=== PATIENT | female | born 1955 | race Caucasian/White ===

== ENCOUNTER → 2020-03-07 | Outpatient (CLI) | payer MEDICARE ==
--- NOTE | 2020-03-07 10:54 | MM ---
Reason for exam: clinical finding. History: Patient is postmenopausal and has history of breast cancer at age 47. Family history of breast cancer in sister at age 40 and breast cancer in cousin at age 40. Implant in the right breast, 2001. Breast lift of the left breast. Reduction of the left breast. Mastectomy of the right breast. Took antineoplastic beginning at age 47. Physical Findings: Nurse did not find any significant physical abnormalities on exam. MG 3D Diag Mammo W/Cad LT CC and MLO view(s) were taken of the left breast. The breast tissue is heterogeneously dense. This may lower the sensitivity of mammography. Stable benign calcifications left breast. There is no discrete abnormality including area of concern. These results were verbally communicated with the patient and result sheet given to the patient on 03/07/20. ASSESSMENT: Incomplete: need additional imaging evaluation, BI-RAD 0 RECOMMENDATION: Ultrasound of the left breast. Manage patient on a clinical basis.
--- NOTE | 2020-03-07 10:55 | USB ---
Reason for exam: additional evaluation requested from abnormal screening. History: Patient is postmenopausal and has history of breast cancer at age 47. Family history of breast cancer in sister at age 40 and breast cancer in cousin at age 40. Implant in the right breast, 2001. Breast lift of the left breast. Reduction of the left breast. Mastectomy of the right breast. Took antineoplastic beginning at age 47. US Breast LT Left complete breast ultrasound includes all four quadrants, the retroareolar region and axilla. Finding demonstrates no cystic or solid lesion seen. These results were verbally communicated with the patient and result sheet given to the patient on 03/07/20. ASSESSMENT: Negative, BI-RAD 1 RECOMMENDATION: Routine screening mammogram of the left breast in 1 year. Manage patient on a clinical basis.
--- NOTE | 2020-03-08 13:40 | BD ---
EXAMINATION TYPE: Axial Bone Density DATE OF EXAM: 03/07/2020 COMPARISON: NONE CLINICAL HISTORY: Height: 64.5 Weight: 154.4 FRAX RISK QUESTIONS: Alcohol (3 or more units per day): no Family History (Parent hip fracture): no Glucocorticoids (More than 3mos): no (Ex: prednisone, prednisolone, methylprednisolone, dexamethasone, and hydrocortisone). History of Fracture in Adulthood: no Secondary Osteoporosis: 1. Type 1 Diabetes: no 2. Hyperthyroidism: no 3. Menopause before 45: no 4. Malnutrition: no 5. Chronic liver disease: no Rheumatoid Arthritis: no Current Tobacco Use: yes RISK FACTORS HISTORY OF: Family History of Osteoporosis: no Active: yes Diet low in dairy products/other sources of calcium: yes Postmenopausal woman: age46 MEDICATIONS: none Additional History: EXAM MEASUREMENTS: Bone mineral densitometry was performed using the [employer] System. Bone mineral density as measured about the Lumbar spine is: ----- L1-L4(G/cm2): 1.092 T Score Values are as follows: ----- L2: -1.1 ----- L3: -0.3 ----- L4: -0.5 ----- L1-L4: 0.7 Bone mineral density : baseline Bone mineral density about the R hip (g/cm2): 0.882 Bone mineral density about the L hip (g/cm2): 0.966 T Score values are as follows: -----R Neck: -1.1 -----L Neck: -0.5 -----R Total: -0.9 -----L Total: -0.1 Bone mineral density : baseline IMPRESSION: Osteopenia (T Score between -2.5 and -1). Right femoral neck There is slightly increased risk of fracture and the patient may be considered for treatment. Re-Screen 2-5 years. NOTE: T-SCORE=SD OF THE YOUNG ADULT MEAN.
== END | disposition home or self-care (01) ==
LOC: RADMAMWWP 08:56
PROVIDERS: ATTEND Family Medicine
DX: Z08 Encounter for follow-up examination after completed treatment for malignant neoplasm (principal); M85.851 Other specified disorders of bone density and structure, right thigh; Z85.3 Personal history of malignant neoplasm of breast
CPT/HCPCS: 77080; 77065; 76641; G0279; 77061

== ENCOUNTER → 2021-05-22 | Outpatient (CLI) | payer MEDICARE ==
--- NOTE | 2021-05-23 12:27 | MM ---
Reason for exam: screening (asymptomatic). Last mammogram was performed 1 year and 2 months ago. History: Patient is postmenopausal and has history of breast cancer at age 47. Family history of breast cancer in sister at age 40 and breast cancer in cousin at age 40. Implant in the right breast, 2001. Breast lift of the left breast. Reduction of the left breast. Mastectomy of the right breast. Took antineoplastic beginning at age 47. Physical Findings: A clinical breast exam by your physician is recommended on an annual basis and results should be correlated with mammographic findings. MG 3D Scr Portia Unilateral W/Cad CC and MLO view(s) were taken of the left breast. Prior study comparison: March 07, 2020, left breast MG 3d diag mammo w/cad LT. There are scattered fibroglandular densities. There are benign appearing round, grouped and scattered calcifications in the left breast. There is no discrete abnormality. ASSESSMENT: Benign, BI-RAD 2 RECOMMENDATION: Routine screening mammogram of the left breast in 1 year.
== END | disposition home or self-care (01) ==
LOC: RADMAMWWP 09:25
PROVIDERS: ATTEND Family Medicine
DX: Z12.31 Encounter for screening mammogram for malignant neoplasm of breast (principal); Z78.0 Asymptomatic menopausal state; Z85.3 Personal history of malignant neoplasm of breast
CPT/HCPCS: 77067

== ENCOUNTER → 2022-06-02 | Outpatient (CLI) | payer MEDICARE ==
--- NOTE | 2022-06-02 19:29 | BD ---
EXAMINATION TYPE: Axial Bone Density DATE OF EXAM: 06/02/2022 COMPARISON: NONE CLINICAL HISTORY: 67 years year old Female. ICD-10 CODE: N95.1 POST MENOP M89.9 Height: 63.25 Weight: 141.9 FRAX RISK QUESTIONS: Alcohol (3 or more units per day): NO Family History (Parent hip fracture): NO Glucocorticoids (More than 3mos): NO History of Fracture in Adulthood: NO Secondary Osteoporosis: 1. Type 1 Diabetes: NO 2. Hyperthyroidism: NO 3. Menopause before 45: YES 4. Malnutrition: NO 5. Chronic liver disease: NO Rheumatoid Arthritis: NO Current Tobacco Use: YES RISK FACTORS HISTORY OF: Hip Fracture (Right/Left): NO Spine Fracture: NO History of Wrist Fracture: NO Surgery to Spine/Hip(right/left)/Wrist (right/left): NO Family History of Osteoporosis: NO Active: YES Diet low in dairy products/other sources of calcium: YES Postmenopausal woman: YES Take estrogen and/or progesterone medications: NO Lost more than 2 inches in height since high school: NO Frequent falls: NO Poor Health: NO Hyperparathyroidism: NO Adrenal Insufficiency: NO MEDICATIONS: Prednisone or other steroids: NO Thyroid Medications: NO Osteoporosis Medications: NO Additional Medications: MULTI VIT, VIT C, FISH OIL, VIT D BREAST CA. AGE 43 WITH CHEMO Additional History: EXAM MEASUREMENTS: Bone mineral densitometry was performed using the [email or web address] System. Bone mineral density as measured about the Lumbar spine is: ----- L1-L4(G/cm2): 1.085 T Score Values are as follows: ----- L1: -2.0 ----- L2: -1.1 ----- L3: -0.5 ----- L4: 0.1 ----- L1-L4: -0.8 BASELINE STUDY Bone mineral density about the R hip (g/cm2): 0.874 Bone mineral density about the L hip (g/cm2): 0.954 T Score values are as follows: -----R Neck: -1.2 -----L Neck: -0.6 -----R Total: -1.2 -----L Total: -0.2B BASELINE STUDY FRAX%s: The graph provided illustrates a 9.2% chance for a major osteoporotic fx and a 1.6% chance fo r the hips probability for fx in 10 years time. IMPRESSION: Osteopenia (T Score between -2.5 and -1). There is slightly increased risk of fracture and the patient may be considered for treatment. Re-Screen 2-5 years. NOTE: T-SCORE=SD OF THE YOUNG ADULT MEAN.
--- NOTE | 2022-06-03 07:57 | MM ---
Reason for Exam: Screening (asymptomatic). Last screening mammogram was performed 12 month(s) ago. Patient History: Menarche at age 15. First Full-Term at age 27. Postmenopausal. Patient has history of breast feeding. Breast cancer, right, age 47. Previous chemotherapy at age 47. 2001, Reduction on the Left side. 2001, Mastectomy on the Right side. 2001, Implant on the right side. Maternal cousin had breast cancer, age 40. Sister had breast cancer, age 40. Prior Study Comparison: 03/07/2020 Left Diagnostic Mammogram, [facility]. 05/22/2021 Left Screening Mammogram, [facility]. Tissue Density: Left: There are scattered fibroglandular densities. Overall Assessment: Benign, BI-RAD 2 Management: Screening Mammogram of the left breast in 1 year. Electronically signed and approved by: Rico Montes D.O.
== END | disposition home or self-care (01) ==
LOC: RADBDWWP 14:33
PROVIDERS: ATTEND Family Medicine
DX: M85.89 Other specified disorders of bone density and structure, multiple sites (principal); Z85.3 Personal history of malignant neoplasm of breast
CPT/HCPCS: 77067; 77080

== ENCOUNTER 2022-06-17 07:16 | Day surgery (SDC) | payer MEDICARE ==
[2022-06-16 08:34] VITALS: BMI 23.6
[~2022-06-17 07:16] MED LIST: LACTATED RINGERS 1,000 ML IV SCH; LIDOCAINE 1% (10MG/ML) FOR IV START INTRADERMA PRN
[2022-06-17 07:48] VITALS: TEMP 97.1
[2022-06-17 08:07] LABS: Glucose,Whole Blood 99 mg/dL (70-110)
[2022-06-17] MEDS ORDERED: LIDOCAINE 2% INJ 20 MG/ML (2 ML VIAL) ONE (08:46)
[2022-06-17] MEDS ORDERED: PROPOFOL 10 MG/ML 20 ML VIAL IV ONE (08:46)
--- NOTE | 2022-06-17 09:02 | P.PCN ---
Date of Procedure: 06/17/22 Procedure(s) Performed: BRIEF HISTORY: Patient is a 67-year-old pleasant female scheduled for an elective colonoscopy as a part of screening for colon cancer. Her last colonoscopy was 10 years ago. PROCEDURE PERFORMED: Colonoscopy. PREOPERATIVE DIAGNOSIS: Screening for colon cancer. IV sedation per Anesthesia. PROCEDURE: After informed consent was obtained, the patient, was brought into the endoscopy unit. IV sedation was administered by Anesthesia under continuous monitoring. Digital rectal examination was normal. Initially the Olympus CF-160 flexible video colonoscope was then inserted in the rectum, gradually advanced into the cecum without any difficulty. Careful examination was performed as the scope was gradually being withdrawn. Ileocecal valve and the appendiceal orifice were visualized and appeared normal. Prep was excellent. Mucosa of the cecum, ascending colon, transverse colon, descending colon, sigmoid colon, and rectum appeared normal. Retroflexion was performed in the rectum and no lesions were seen. The patient tolerated the procedure well. IMPRESSION: Normal-appearing colon from rectum to cecum with no evidence of colorectal neoplasia. RECOMMENDATIONS: Findings of this examination were discussed with the patient as well as a family.. She was advised to have a repeat screening colonoscopy in 10 years.
[2022-06-17 09:09] VITALS: RESP 16
[2022-06-17 09:21] VITALS: BP 108/54; PULSE 60
== END 2022-06-17 09:59 | disposition home or self-care (01) ==
LOC: ORWHC2ENDO 07:16
PROVIDERS: ATTEND Internal Medicine Gastroenterology
DX: Z12.11 Encounter for screening for malignant neoplasm of colon (principal); Z79.899 Other long term (current) drug therapy; Z85.3 Personal history of malignant neoplasm of breast; Z90.11 Acquired absence of right breast and nipple
CPT/HCPCS: J2704; J2001; G0121

== ENCOUNTER → 2022-09-17 | Outpatient (CLI) | payer MEDICARE ==
--- NOTE | 2022-09-17 12:49 | CTL ---
EXAMINATION TYPE: CT Low Dose Lung DATE OF EXAM ORDERED: 09/17/2022 HISTORY: 67-year-old female Z87.891 NICOTINE DEPENDENCE. 50 pack-year history of smoking. Lung cancer screening CT DLP: 80.[address] CTDI: 2.1 mGy Automated exposure control for dose reduction was used. SCREENING VISIT: Baseline COMPARISON: None TECHNIQUE: Low dose computed tomography scan was performed through the chest with coronal and sagitta l reconstructions. CT DIAGNOSTIC QUALITY: Satisfactory FINDINGS: Status post right mastectomy with a retropectoral right breast implant/reconstruction. Heart normal size without pericardial effusion. Aorta normal caliber with conventional arch also branching anatomy. Mildly ectatic lower descending t horacic aorta at 2.9 cm. No thoracic lymphadenopathy by CT size criteria. Mild centrilobular emphysema. Minimal biapical pleural parenchymal scarring. No consolidation or pleu ral effusion. 4 mm lateral right upper lobe pulmonary nodule, axial image 93. Tiny 3 mm calcified granuloma posterior left upper lobe, axial image 50. Visualized upper abdomen shows a 1.9 cm low-density nodule of the left adrenal gland with attenuation of 6 Hounsfield units compatible with lipid rich adrenal adenoma. Bones: No osseous destructive process seen. IMPRESSION: 1. LungRADS 2, benign; a couple pulmonary nodules measuring up to 4 mm. The smaller nodule represents a benign calcified granuloma. 2. COPD with mild emphysema. Recommend smoking cessation. 3. Incidental 1.9 cm lipid rich left adrenal adenoma. CT LUNG RAD AND CT CHEST RECOMMENDATION: Lung-Rad 2 Benign Appearance or Behavior: Continue annual sc reening with LDCT in 12 months. S Modifier (other clinically significant findings): S, left adrenal adenoma as mentioned above.
== END | disposition home or self-care (01) ==
LOC: RADCTMAIN 10:49
PROVIDERS: ATTEND Family Medicine
DX: Z12.2 Encounter for screening for malignant neoplasm of respiratory organs (principal); J43.9 Emphysema, unspecified; D35.02 Benign neoplasm of left adrenal gland; R91.8 Other nonspecific abnormal finding of lung field; J84.10 Pulmonary fibrosis, unspecified; Z87.891 Personal history of nicotine dependence
CPT/HCPCS: 71271

== ENCOUNTER → 2022-09-24 | Outpatient (CLI) | payer MEDICARE ==
--- NOTE | 2022-09-24 10:42 | XR ---
EXAMINATION TYPE: XR cervical spine comp DATE OF EXAM: 09/24/2022 COMPARISON: NONE HISTORY: Pain TECHNIQUE: Four views are submitted. FINDINGS: The odontoid is intact. There are no compression deformities. The prevertebral soft tissue structur es are within normal limits. Moderate to severe degenerative disc disease with hypertrophic changes C5-6 and C6-C7. Bilateral foraminal encroachment levels. Tiny calcification in soft tissues left neck could be related to the carotid artery. IMPRESSION: 1. Moderate to severe degenerative disc disease C5-6 and C6-C7 with bilateral foraminal quadrant. Cor relate with MRI as clinically warranted..
--- NOTE | 2022-09-24 10:43 | XR ---
EXAMINATION TYPE: XR shoulder complete LT DATE OF EXAM: 09/24/2022 COMPARISON: NONE HISTORY: Pain TECHNIQUE: Three views are submitted. FINDINGS: The osseous structures are intact. There is no acute fracture or dislocation. Severe narrowing of th e AC joint. IMPRESSION: 1. Severe AC joint arthropathy
== END | disposition home or self-care (01) ==
LOC: RADXRMAIN 09:55
PROVIDERS: ATTEND Family Medicine
DX: M50.323 Other cervical disc degeneration at C6-C7 level (principal); M19.012 Primary osteoarthritis, left shoulder; M75.42 Impingement syndrome of left shoulder
CPT/HCPCS: 72050

== ENCOUNTER → 2022-10-10 | Outpatient (CLI) | payer MEDICARE ==
[2022-10-10 14:30] LABS: Basophils # (A) 0.07 X 10*3/uL (0.00-0.10); Basophils % (A) 0.7 %; Lymphocytes # (A) 3.21 X 10*3/uL (0.90-5.00); Lymphocytes % (A) 31.3 %; MCH 23.5 pg (27.0-32.0); MCV 80.9 fL (80.0-97.0); Mean Platelet Volume 8.8 fL (9.5-12.2); Monocytes # (A) 0.99 X 10*3/uL (0.20-1.00); Monocytes % (A) 9.6 %; NRBC Per 100 WBC 0 /100 WBCS (0.0-0.0); Neutrophils % (A) 56.4 %; Platelet Count 436 X 10*3/uL (140-440); RBC 3.83 X 10*6/uL (4.10-5.20); RDW 16.4 % (11.5-14.5); WBC 10.27 X 10*3/uL (4.50-10.00)
[2022-10-10 15:13] LABS: Erythrocyte Sedimentation Rate 82 mm/Hr (0-30)
[2022-10-10 15:57] LABS: Protein, Total 7.7 g/dL (6.2-8.2)
[2022-10-10 16:01] LABS: African American GFR (CKD) 115.3 (60.0-200.0); Albumin 3.6 g/dL (3.8-4.9); Albumin/Globulin Ratio 0.9 (1.60-3.17); BUN/Creat Ratio 25.2 Ratio (12.00-20.00); Blood Urea Nitrogen 12.6 mg/dL (9.0-27.0); C Reactive Protein 19.1 mg/dL (0.00-0.80); Calcium 9.2 mg/dL (8.7-10.3); Non-African American GFR(CKD) 99.4 (60.0-200.0); Total Bilirubin 0.3 mg/dL (0.30-1.20); Total Protein 7.6 g/dL (6.2-8.2)
== END | disposition home or self-care (01) ==
LOC: LABWHC1 09:20
PROVIDERS: ATTEND Family Medicine
DX: M62.81 Muscle weakness (generalized) (principal); T56 Toxic effect of metals
CPT/HCPCS: 36415; 80053; 82525; 83883; 84165; 85025; 85652; 86140; 86334

== ENCOUNTER → 2022-10-15 | Outpatient (CLI) | payer MEDICARE ==
--- NOTE | 2022-10-15 11:50 | XR ---
EXAMINATION TYPE: XR lumbar spine 2 or 3V DATE OF EXAM: 10/15/2022 10:09 AM INDICATION: Patient age:Female; 67 years old; Reason for study: M62.81 Muscle weakness; COMPARISON: None TECHNIQUE: Frontal, lateral and coned in L5-S1 lateral views of the spine. FINDINGS: No evidence of any acute osseous pathology. No evidence of loss of vertebral body height i s seen. There is mild extra scoliosis apex L3 alignment of the lumbar vertebral bodies. Mild scattere d disc space narrowing. Multilevel marginal osteophyte formation throughout the visualized spine. The re is facet joint arthropathy throughout the spine. Scattered at least mild neural foraminal stenosis . IMPRESSION: 1. No acute fracture. 2. Mild multilevel disc degeneration.
== END | disposition home or self-care (01) ==
LOC: RADXRMAIN 09:50
PROVIDERS: ATTEND Family Medicine
DX: M51.36 Other intervertebral disc degeneration, lumbar region (principal); M62.81 Muscle weakness (generalized)
CPT/HCPCS: 72100

== ENCOUNTER → 2022-12-27 | Outpatient (CLI) | payer MEDICARE ==
--- NOTE | 2022-12-27 13:30 | MR ---
EXAMINATION TYPE: MR cervical spine wo con DATE OF EXAM: 12/27/2022 COMPARISON: Cervical spine radiograph 09/24/2022 HISTORY: Neck pain, muscle weakness TECHNIQUE: Multiplanar, multisequence images of the cervical spine were acquired without contrast. FINDINGS: Cervical segments are intact. There is normal alignment. Cervical spinal cord is of normal signal. Craniovertebral junction relationships are within normal limits. Multilevel disc desiccation. C2-C3: No disc bulge/herniation or protrusion. No Canal stenosis. Foramina are patent bilaterally. C3-C4: No disc bulge/herniation or protrusion. No Canal stenosis. Foramina are patent bilaterally. C4-C5: No disc bulge/herniation or protrusion. No Canal stenosis. Foramina are patent bilaterally. C5-C6: Broad-based disc bulge with mild effacement of the anterior thecal sac. Uncovertebral joint hy pertrophy. Moderate bilateral neural foraminal stenosis. C6-C7: Broad-based disc bulge with mild effacement of the anterior thecal sac. Uncovertebral joint hy pertrophy. Moderate right and mild left neural foraminal stenosis. C7-T1: No disc bulge/herniation or protrusion. No Canal stenosis. Foramina are patent bilaterally. IMPRESSION: 1. No disc herniation. 2. Moderate degenerative disc disease and uncovertebral joint hypertrophy at C5-C6 and C6-C7 with mil d central canal narrowing and varying degrees of neural foraminal stenosis as described above.
== END | disposition home or self-care (01) ==
LOC: RADMRIMAIN 11:58
PROVIDERS: ATTEND Psychiatry & Neurology Neurology
DX: M50.122 Cervical disc disorder at C5-C6 level with radiculopathy (principal); M99.71 Connective tissue and disc stenosis of intervertebral foramina of cervical region
CPT/HCPCS: 72141

== ENCOUNTER 2023-03-20 17:48 | Inpatient (IN) | payer MEDICARE ==
--- NOTE | 2023-03-20 19:07 | US ---
EXAMINATION TYPE: US venous doppler duplex LE LT DATE OF EXAM: 03/20/2023 6:52 PM COMPARISON: NONE CLINICAL INDICATION: Female, 68 years old with history of decrease pedal pulse. cyanotic; left foot p ain and edema SIDE PERFORMED: left TECHNIQUE: The lower extremity deep venous system is examined utilizing real time linear array sonog desire with graded compression, doppler sonography and color-flow sonography. VESSELS IMAGED: Common Femoral Vein Deep Femoral Vein Greater Saphenous Vein * Femoral Vein Popliteal Vein Small Saphenous Vein * Proximal Calf Veins (* superficial vessels) Left Leg: No evidence of DVT IMPRESSION: Grayscale, color doppler, spectral doppler imaging performed of the deep veins of the lo wer extremities. There is normal flow, compressibility, vascular waveforms.
--- NOTE | 2023-03-20 20:24 | ED ---
Extremity Problem HPI - General Source: patient Mode of arrival: ambulatory Limitations: no limitations <Yoshi Denson - Last Filed: 03/20/23 20:23> <Claus Goss - Last Filed: 03/20/23 23:53> - General Chief complaint: Extremity Problem,Nontraumatic Stated complaint: L foot pain Time Seen by Provider: 03/20/23 20:23 - History of Present Illness Initial comments: 68-year-old female presenting with chief complaint of left foot pain. Pain is been worsening for the last few days. States that there is some discoloration mainly to the big toe. (Yoshi Denson) Dictation was produced using [email or web address] dictation software. please excuse any grammatical, word or spelling errors. Chief Complaint: 68-year-old female presents to the ER from urgent care for possible ischemic limb History of Present Illness: Patient is 68-year-old female presents emergency department for concerns of ischemic limb. She went to the urgent care and was found to have decreased dorsalis pedis pulse. She told to come to the emergency department. Over the last 3 days she's been having worsening pain. States that her pain was significantly elevated yesterday. Patient has had similar issues intermittently since September however over the last couple days as escalated. Patient noticed some mottling of the left foot. The ROS documented in this emergency department record has been reviewed and confirmed by me. Those systems with pertinent positive or negative responses have been documented in the HPI. All other systems are other negative and/or noncontributory. (Claus Goss) - Related Data Home Medications Medication Instructions Recorded Confirmed Ascorbic Acid [Vitamin C] 500 mg PO DAILY 06/16/22 12/02/22 Cholecalciferol [Vitamin D3 (25 50 mcg PO DIRECTED 06/16/22 12/02/22 Mcg = 1000 Iu)] [place]-3/Dha/Epa/Fish Oil [Fish Oil 1 each PO DAILY 06/16/22 12/02/22 1,000 mg Softgel] Vitamin C/Biotin [Hair, Skin and 1 tab PO DAILY 06/16/22 12/02/22 Nails Chew] Celecoxib [CeleBREX] 200 mg PO DAILY 11/19/22 12/02/22 Cyanocobalamin [Vitamin B-12] 500 mcg PO DAILY 11/19/22 12/02/22 NIFEdipine [NIFEdipine ER 60 mg PO DAILY 11/19/22 12/02/22 (Osmotic)] DULoxetine HCL 20 mg PO DAILY 12/02/22 12/02/22 Allergies Allergy/AdvReac Type Severity Reaction Status Date / Time No Known Allergies Allergy Verified 12/02/22 08:12 Review of Systems ROS Other: All systems not noted in ROS Statement are negative. <Yoshi Denson - Last Filed: 03/20/23 20:23> ROS Other: All systems not noted in ROS Statement are negative. <Claus Goss - Last Filed: 03/20/23 23:53> ROS Statement: Those systems with pertinent positive or pertinent negative responses have been documented in the HPI. Past Medical History Past Medical History: Cancer, Mitral Valve Prolapse (MVP) Additional Past Medical History / Comment(s): right breast cancer (2001- mastectomy with chemo)., [id number]-[id number] diet. Reynad's syndrome. History of Any Multi-Drug Resistant Organisms: None Reported Past Surgical History: Breast Surgery Additional Past Surgical History / Comment(s): right mastectomy, colonoscopy Past Anesthesia/Blood Transfusion Reactions: No Reported Reaction Past Psychological History: No Psychological Hx Reported Smoking Status: Current every day smoker Past Alcohol Use History: Rare Past Drug Use History: None Reported - Past Family History Father Family Medical History: Cancer Additional Family Medical History / Comment(s): prostate cancer Sister(s) Family Medical History: Cancer Additional Family Medical History / Comment(s): breast cancer <Yoshi Denson - Last Filed: 03/20/23 20:23> General Exam Limitations: no limitations <Yoshi Denson - Last Filed: 03/20/23 20:23> <Claus Goss - Last Filed: 03/20/23 23:53> - General Exam Comments Initial Comments: Visual Physical Exam Vital signs reviewed General: Well-appearing, nontoxic, no acute distress. Head: Normocephalic, atraumatic Eyes: PERRLA, EOMI ENT: Airway patent Chest: Nonlabored breathing Skin: No visual rash, normal skin tone Neuro: Alert and oriented 3 Musculoskeletal: No gross abnormalities (Yoshi Denson) PHYSICAL EXAM: General Impression: Alert and oriented x3, not in acute distress HEENT: Normocephalic atraumatic, extra-ocular movements intact, pupils equal and reactive to light bilaterally, mucous membranes moist. Cardiovascular: Heart regular rate and rhythm Chest: Able to complete full sentences, no retractions, no tachypnea Abdomen: abdomen soft, non-tender, non-distended, no organomegaly Musculoskeletal: Pulses present and equal in all extremities, no peripheral edema Motor: no focal deficits noted Neurological: CN II-XII grossly intact, no focal motor or sensory deficits noted Skin: Intact with no visualized rashes Psych: Normal affect and mood Left lower extremity: Mottling to the left foot, platelet their meal from the mid tibia down, no palpable dorsalis pedis pulse, particularly of the foot (Claus Goss) Course Vital Signs 03/20/23 03/20/23 03/20/23 18:02 21:25 23:14 Temperature 98.2 F 97.5 F L 97.4 F L Pulse Rate 75 60 74 Respiratory 18 18 17 Rate Blood Pressure 171/89 164/83 133/82 O2 Sat by Pulse 96 98 96 Oximetry Medical Decision Making - Lab Data Result diagrams: 03/20/23 21:47 03/20/23 21:47 <Claus Goss - Last Filed: 03/20/23 23:53> - Medical Decision Making Was pt. sent in by a medical professional or institution (Dr. PA, WALL M[employer]OR DEPARTMENT SUPERVISOR, urgent care, hospital, or long-term...) When possible be specific @ -No Did you speak to anyone other than the patient for history (EMS, parent, family, police, friend...)? What history was obtained from this source @ -No Did you review nursing and triage notes (agree or disagree)? Why? @ -I reviewed and agree with nursing and triage notes Were old charts reviewed (outside hosp., previous admission, EMS record, old EKG, old radiological studies, urgent care reports/EKG's, long-term records)? Report findings @ -No old charts were reviewed Differential Diagnosis (chest pain, altered mental status, abdominal pain women, abdominal pain men, vaginal bleeding, musculoskeletal, weakness, fever, dyspnea, syncope, headache, dizziness, GI bleed, back pain, seizure, CVA, palpatations, mental health)? @ -not applicable EKG interpreted by me (3pts min.). @ -None done X-rays interpreted by me (1pt min.). @ -None done CT interpreted by me (1pt min.). @ -CT angiography shows arterial occlusion to the left lower leg U/S interpreted by me (1pt. min.). @ -None done What testing was considered but not performed or refused? (CT, X-rays, U/S, labs)? Why? @ -None What meds were considered but not given or refused? Why? @ -None Did you discuss the management of the patient with other professionals (professionals i.e. DrRoby, PA, [employer] M[employer] DEPARTMENT SUPERVISOR, lab, RT, psych nurse, social studies teacher, club former, teacher, hydrological technical officer, pillowcase turner)? Give summary @ -Case discussed with Dr. Field who requests patient be treated with heparin. Was smoking cessation discussed for >3mins.? @ -Yes Was critical care preformed (if so, how long)? @ -yes, 33 minutes Were there social determinants of health that impacted care today? How? (Homelessness, low income, unemployed, alcoholism, drug addiction, transportation, low edu. Level, literacy, decrease access to med. care, skilled nursing, rehab)? @ -No Was there de-escalation of care discussed even if they declined (Discuss DNR or withdrawal of care, Hospice)? DNR status @ -No What co-morbidities impacted this encounter? (DM, HTN, Smoking, COPD, CAD, Cancer, CVA, ARF, Chemo, Hep., AIDS, mental health diagnosis, sleep apnea, morbid obesity)? @ -None Was patient admitted / discharged? Hospital course, mention meds given and route, prescriptions, significant lab abnormalities, going to OR and other pertinent info. @ -68-year-old female presents to the emergency department with complaints consistent with ischemic limb. Vital signs are stable. Laboratory evaluation obtained on B within acceptable limits. Imaging study shows arterial occlusion to the left lower trifurcation below the popliteal artery. Case discussed with on-call vascular surgery who requests patient be started on heparin. Dr. Field will consult. Patient admitted to [facility]'s group. Undiagnosed new problem with uncertain prognosis? @ -No Drug Therapy requiring intensive monitoring for toxicity (Heparin, Nitro, Insulin, Cardizem)? @ -No Were any procedures done? @ -No Diagnosis/symptom? Acute, or Chronic, or Acute on Chronic? Uncomplicated (w ithout systemic symptoms) or Complicated (systemic symptoms)? @ -1. Acute ischemic limb Side effects of treatment? @ -No Exacerbation, Progression, or Severe Exacerbation? @ -No Poses a threat to life or bodily function? How? (Chest pain, USA, PR, pneumonia, PE, COPD, DKA, ARF, appy, cholecystitis, CVA, Diverticulitis, Homicidal, Suicidal, threat to staff... and all critical care pts) @ -yes (Claus Goss) - Lab Data Lab Results 03/20/23 03/20/23 03/20/23 Range/Units 21:47 21:47 21:47 WBC 10.8 H (3.8-10.6) k/uL RBC 4.79 (3.80-5.40) m/uL Hgb 13.1 (11.4-16.0) gm/dL Hct 41.3 (34.0-46.0) % MCV 86.2 (80.0-100.0) fL MCH 27.4 (25.0-35.0) pg MCHC 31.8 (31.0-37.0) g/dL RDW 22.2 H (11.5-15.5) % Plt Count 211 (150-450) k/uL MPV 7.0 Neutrophils % 56 % Lymphocytes % 36 % Monocytes % 6 % Eosinophils % 1 % Basophils % 0 % Neutrophils # 6.1 (1.3-7.7) k/uL Lymphocytes # 3.9 (1.0-4.8) k/uL Monocytes # 0.6 (0-1.0) k/uL Eosinophils # 0.1 (0-0.7) k/uL Basophils # 0.0 (0-0.2) k/uL Anisocytosis Moderate Microcytosis Slight PT (9.0-12.0) sec INR (<1.2) APTT (22.0-30.0) sec Sodium 138 (137-145) mmol/L Potassium 3.8 (3.5-5.1) mmol/L Chloride 105 (98-107) mmol/L Carbon Dioxide 26 (22-30) mmol/L Anion Gap 7 mmol/L BUN 27 H (7-17) mg/dL Creatinine 0.59 (0.52-1.04) mg/dL Est GFR (CKD-EPI)AfAm >90 (>60 ml/min/1.73 sqM) Est GFR (CKD-EPI)NonAf >90 (>60 ml/min/1.73 sqM) Glucose 96 (74-99) mg/dL Plasma Lactic Acid Esa 1.0 (0.7-2.0) mmol/L Calcium 9.1 (8.4-10.2) mg/dL Total Bilirubin 0.4 (0.2-1.3) mg/dL AST 18 (14-36) U/L ALT 18 (4-34) U/L Alkaline Phosphatase 50 (38-126) U/L Total Protein 7.2 (6.3-8.2) g/dL Albumin 4.1 (3.5-5.0) g/dL 03/20/23 Range/Units 21:59 WBC (3.8-10.6) k/uL RBC (3.80-5.40) m/uL Hgb (11.4-16.0) gm/dL Hct (34.0-46.0) % MCV (80.0-100.0) fL MCH (25.0-35.0) pg MCHC (31.0-37.0) g/dL RDW (11.5-15.5) % Plt Count (150-450) k/uL MPV Neutrophils % % Lymphocytes % % Monocytes % % Eosinophils % % Basophils % % Neutrophils # (1.3-7.7) k/uL Lymphocytes # (1.0-4.8) k/uL Monocytes # (0-1.0) k/uL Eosinophils # (0-0.7) k/uL Basophils # (0-0.2) k/uL Anisocytosis Microcytosis PT 9.9 (9.0-12.0) sec INR 0.9 (<1.2) APTT 21.5 L (22.0-30.0) sec Sodium (137-145) mmol/L Potassium (3.5-5.1) mmol/L Chloride (98-107) mmol/L Carbon Dioxide (22-30) mmol/L Anion Gap mmol/L BUN (7-17) mg/dL Creatinine (0.52-1.04) mg/dL Est GFR (CKD-EPI)AfAm (>60 ml/min/1.73 sqM) Est GFR (CKD-EPI)NonAf (>60 ml/min/1.73 sqM) Glucose (74-99) mg/dL Plasma Lactic Acid Esa (0.7-2.0) mmol/L Calcium (8.4-10.2) mg/dL Total Bilirubin (0.2-1.3) mg/dL AST (14-36) U/L ALT (4-34) U/L Alkaline Phosphatase (38-126) U/L Total Protein (6.3-8.2) g/dL Albumin (3.5-5.0) g/dL Disposition <Yoshi Denson - Last Filed: 03/20/23 20:23> Decision Time: 23:52 <Claus Goss - Last Filed: 03/20/23 23:53> Clinical Impression: Ischemic leg Disposition: ADMITTED IP TO THIS HOSP Condition: Critical Referrals: Shaniqua Ray MD [Primary Care Provider] - 1-2 days
[2023-03-20] MEDS ORDERED: RX INFO: IV CONTRAST WAS GIVEN 1 EACH MISC MISCELLANE PRN (21:17)
[2023-03-20 22:04] LABS: Anisocytosis Moderate; Basophils % (A) 0 %; Eosinophils # (A) 0.1 k/uL (0-0.7); Eosinophils % (A) 1 %; HCT 41.3 % (34.0-46.0); HGB 13.1 gm/dL (11.4-16.0); Lymphocytes # (A) 3.9 k/uL (1.0-4.8); Lymphocytes % (A) 36 %; MCH 27.4 pg (25.0-35.0); MCHC 31.8 g/dL (31.0-37.0); MCV 86.2 fL (80.0-100.0); Microcytosis Slight; Monocytes # (A) 0.6 k/uL (0-1.0); Monocytes % (A) 6 %; Neutrophils # (A) 6.1 k/uL (1.3-7.7); Neutrophils % (A) 56 %; Platelet Count 211 k/uL (150-450); RBC 4.79 m/uL (3.80-5.40); RDW 22.2 % (11.5-15.5); WBC 10.8 k/uL (3.8-10.6)
[2023-03-20 22:14] LABS: ALT 18 U/L (4-34); AST 18 U/L (14-36); African American GFR (CKD) >90 (>60 ml/min/1.73 sqM); Albumin 4.1 g/dL (3.5-5.0); Alkaline Phosphatase 50 U/L (38-126); Anion Gap 7 mmol/L; Blood Urea Nitrogen 27 mg/dL (7-17); Calcium 9.1 mg/dL (8.4-10.2); Carbon Dioxide 26 mmol/L (22-30); Chloride 105 mmol/L (98-107); Glucose 96 mg/dL (74-99); Non-African American GFR(CKD) >90 (>60 ml/min/1.73 sqM); Potassium 3.8 mmol/L (3.5-5.1); Sodium 138 mmol/L (137-145); Total Bilirubin 0.4 mg/dL (0.2-1.3); Total Protein 7.2 g/dL (6.3-8.2)
[2023-03-20 22:29] LABS: INR 0.9 (<1.2); Prothrombin Time 9.9 sec (9.0-12.0)
[2023-03-20 22:31] LABS: Partial Thromboplastin Time 21.5 sec (22.0-30.0)
[2023-03-20] MEDS ORDERED: MORPHINE SULFATE 4 MG/ML SYRINGE IV STA (23:14)
--- NOTE | 2023-03-20 23:15 | CT ---
EXAM: CT Angiography of the Left Lower Extremity With Intravenous Contrast CLINICAL HISTORY: Ischemic left lower extremity TECHNIQUE: Axial computed tomographic angiography images of the left lower extremity with intravenous contrast. CTDI is 32.77 mGy and DLP is 1135.8 mGy-cm. This CT exam was performed using one or more of the following dose reduction techniques: automated exposure control, adjustment of the mA and/or kV according to patient size, and/or use of iterative reconstruction technique. MIP reconstructed images were created and reviewed. COMPARISON: No relevant prior studies available. FINDINGS: VASCULATURE: Distal aorta/iliac: The distal aorta is patent with atherosclerotic changes. No dissection or aneurysm. Atherosclerotic changes of the left common iliac artery without narrowing. The left internal and external iliac arteries are patent. Left femoral/popliteal arteries: No acute findings. No occlusion or significant stenosis. Left calf/foot arteries: The left posterior tibial artery occludes proximally. The peroneal artery demonstrates multifocal narrowing throughout its course and occludes at the mid calf. The anterior tibial artery occludes proximally. There is faint reconstitution of the distal posterior tibial artery immediately above the ankle which extends below the ankle. The dorsalis pedis artery is not identified and is presumed occluded. LOWER EXTREMITY: Bones/joints: No acute fracture. No dislocation. Soft tissues: Subcutaneous fat stranding noted involving the mid to distal calf. No subcutaneous emphysema. The muscle bundles are otherwise unremarkable. IMPRESSION: 1. The left posterior tibial artery occludes proximally. The peroneal artery demonstrates multifocal narrowing throughout its course and occludes at the mid calf. The anterior tibial artery occludes proximally. There is faint reconstitution of the distal posterior tibial artery immediately above the ankle which extends below the ankle. The dorsalis pedis artery is not identified and is presumed occluded. 2. No inflow stenosis with the left lower extremity arterial system patent from the distal aorta through the popliteal artery. <MYCVCSECTION> Communications: 03/20/23 23:17 Call Doctor Regarding Acute arterial occlusion/ critical stenosis, called Dr. Ugarte on 03/20 23:16 (-04:00)
[2023-03-20] MEDS ORDERED: HEPARIN SODIUM 1,000 UN/ML (10ML VL) IV PRN (23:36)
[2023-03-20] MEDS ORDERED: HEPARIN SODIUM 1,000 UN/ML (10ML VL) IV ONE (23:36)
[2023-03-20] MEDS ORDERED: NALOXONE 0.4 MG/ML 1 ML VIAL IV PRN (23:44)
[2023-03-20] MEDS ORDERED: ASPIRIN 81 MG PO STA (23:51)
[2023-03-21] MEDS: HEPARIN SOD,PORK IN 0.45% NACL 25,000 UNIT in 0.45% NACL 1 250ML.BAG IV SCH ×2 (00:16→23:53)
[2023-03-21] MEDS: SODIUM CHLORIDE 0.9% 1,000 ML IV SCH ×3 (00:17→23:19)
[2023-03-21] MEDS ORDERED: MORPHINE SULFATE 4 MG/ML SYRINGE IVP PRN (04:58)
--- NOTE | 2023-03-21 08:43 | P.GSCN ---
History of Present Illness Consult date: 03/21/23 History of present illness: Anitha is a 68-year-old female in today for complaints of left lower extremity pain. I was called last night by the ED physician in regards to a possible cool extremity. Per his report and the CT findings was no obvious area of embolic occlusion. I personally reviewed the imaging at that time which showed no large vessel occlusion but difficult visualization of the tibial vessels. The patient's foot, while cool, was still motor sensory intact. She was initiated on a heparin drip and evaluated by me early this morning. At this point patient states her foot is improving. She says is better than when she came here but still has some mild pain in the tip of her second toe. She states that her pain has been similar to what is been doing since September, intermittently but in the past 3-4 days she began having worsening left leg pain and foot pain at the tips of her toes. He was increasingly uncomfortable which caused her to come in to the hospital. She states that having been on the anticoagulation and getting some pain medication has helped. She is continuing to have evaluations by rheumatology and workup for her other concerns and issues like her high popper levels. She is continuing with care of her right hand for her reynauds. She states that 1 month ago she was initiated on high-dose steroids which seemed to help some of her upper extremity and neck concerns. She states she is currently on the 30 mg dose down from 40. She continues to smoke. Again the patient thinks her pain has improved, after discussion with the nurse she was able to sleep through the evening and states it was the best s leep she's had any while. Past Medical History Past Medical History: Cancer, Mitral Valve Prolapse (MVP) Additional Past Medical History / Comment(s): right breast cancer (2001- mastectomy with chemo)., lpz-uztkeoie-rulyzii diet. Reynad's syndrome. History of Any Multi-Drug Resistant Organisms: None Reported Past Surgical History: Breast Surgery Additional Past Surgical History / Comment(s): right mastectomy, colonoscopy Past Anesthesia/Blood Transfusion Reactions: No Reported Reaction Past Psychological History: No Psychological Hx Reported Smoking Status: Current every day smoker Past Alcohol Use History: Rare Past Drug Use History: None Reported - Past Family History Father Family Medical History: Cancer Additional Family Medical History / Comment(s): prostate cancer Sister(s) Family Medical History: Cancer Additional Family Medical History / Comment(s): breast cancer Medications and Allergies Home Medications Medication Instructions Recorded Confirmed Type Ascorbic Acid [Vitamin C] 500 mg PO DAILY 06/16/22 03/21/23 History Cholecalciferol [Vitamin D3 (25 50 mcg PO DAILY 06/16/22 03/21/23 History Mcg = 1000 Iu)] [place]-3/Dha/Epa/Fish Oil [Fish Oil 1 cap PO DAILY 06/16/22 03/21/23 History 1,000 mg Softgel] Cyanocobalamin [Vitamin B-12] 1,000 mcg PO DAILY 11/19/22 03/21/23 History Calcium Carbonate [Calcium] 600 mg PO DAILY 03/21/23 03/21/23 History Repaglinide [Prandin] 0.5 mg PO AC-BID 03/21/23 03/21/23 History lisinopriL [Zestril] 10 mg PO HS 03/21/23 03/21/23 History predniSONE 30 mg PO HS 03/21/23 03/21/23 History Allergies Allergy/AdvReac Type Severity Reaction Status Date / Time No Known Allergies Allergy Verified 03/21/23 07:12 Surgical - Exam Vital Signs Temp Pulse Resp BP Pulse Ox 98.2 F 75 18 171/89 96 03/20/23 18:02 03/20/23 18:02 03/20/23 18:02 03/20/23 18:02 03/20/23 18:02 Gen. is a pleasant cooperative female in no acute distress. HEENT is normocephalic, atraumatic, extraocular motion intact. Heart appears regular in rate and rhythm at this time. Lungs are clear. Abdomen is soft. Weakly palpable right radial and ulnar pulse. Palpable left radial pulse. Mild blanching to the right digits, healing wound to her right point a finger. Palpable femoral and popliteal pulses bilaterally. Palpable right dorsalis pedis pulse. Bilateral lower extremities mildly cool, slightly worsened on the left. Motor sensory intact. Left second toe with some blanching and wounds at the edges of the nail bed. No tenderness to palpation. No mottling. Soft calv es. Normal mood and affect. Cranial nerves II through XII grossly intact Results Labs, ultrasound and CT injury and are reviewed. On my review the CT angiogram there is widely patent left iliac femoral and popliteal vessels. There is visualization of the anterior tibial takeoff and tibial peroneal trunk but no significant further visualization below. No obvious thrombotic changes. Difficult to visualize vessels. - Labs 03/20/23 21:47 03/20/23 21:47 Abnormal Lab Results - Last 24 Hours (Table) 03/20/23 03/20/23 03/20/23 Range/Units 21:47 21:47 21:59 WBC 10.8 H (3.8-10.6) k/uL RDW 22.2 H (11.5-15.5) % APTT 21.5 L (22.0-30.0) sec BUN 27 H (7-17) mg/dL Diabetes panel 03/20/23 Range/Units 21:47 Sodium 138 (137-145) mmol/L Potassium 3.8 (3.5-5.1) mmol/L Chloride 105 (98-107) mmol/L Carbon Dioxide 26 (22-30) mmol/L BUN 27 H (7-17) mg/dL Creatinine 0.59 (0.52-1.04) mg/dL Glucose 96 (74-99) mg/dL Calcium 9.1 (8.4-10.2) mg/dL AST 18 (14-36) U/L ALT 18 (4-34) U/L Alkaline Phosphatase 50 (38-126) U/L Total Protein 7.2 (6.3-8.2) g/dL Albumin 4.1 (3.5-5.0) g/dL Calcium panel 03/20/23 Range/Units 21:47 Calcium 9.1 (8.4-10.2) mg/dL Albumin 4.1 (3.5-5.0) g/dL Pituitary panel 03/20/23 Range/Units 21:47 Sodium 138 (137-145) mmol/L Potassium 3.8 (3.5-5.1) mmol/L Chloride 105 (98-107) mmol/L Carbon Dioxide 26 (22-30) mmol/L BUN 27 H (7-17) mg/dL Creatinine 0.59 (0.52-1.04) mg/dL Glucose 96 (74-99) mg/dL Calcium 9.1 (8.4-10.2) mg/dL Adrenal panel 03/20/23 Range/Units 21:47 Sodium 138 (137-145) mmol/L Potassium 3.8 (3.5-5.1) mmol/L Chloride 105 (98-107) mmol/L Carbon Dioxide 26 (22-30) mmol/L BUN 27 H (7-17) mg/dL Creatinine 0.59 (0.52-1.04) mg/dL Glucose 96 (74-99) mg/dL Calcium 9.1 (8.4-10.2) mg/dL Total Bilirubin 0.4 (0.2-1.3) mg/dL AST 18 (14-36) U/L ALT 18 (4-34) U/L Alkaline Phosphatase 50 (38-126) U/L Total Protein 7.2 (6.3-8.2) g/dL Albumin 4.1 (3.5-5.0) g/dL Assessment and Plan Assessment: Left lower extremity pain, improved on anticoagulation Nonpalpable pedal pulses on the left, similar to previous exam back in November reynauds disease with wounds High-dose steroid use Plan: After evaluation and long discussion with Anitha, we had multiple discussions regarding the acute and chronic nature of her concerns. She has significantly improved on anticoagulation and warming measures. At this point it is difficult to determine if there is any true area of thrombotic concern versus a significant vasospastic phenomenon. Given that this is something that has been ongoing for her and she continues to have some degree of worsening especially o mariola these past few days, do believe that our previously discussed angiogram is warranted at this time. We discussed that if there is evidence of occlusive disease that she may benefit from intervention in the form of angioplasty versus TPA thrombolysis versus vasodilatory injections. Risks and benefits of the procedure including but not limited to bleeding, infection, injury to the vessel, brain bleed were all discussed. The patient seemingly understand and would like to proceed at this time
[2023-03-21] MEDS ORDERED: fentaNYL (PF) 50 MCG/ML 2 ML AMP ONE (09:15)
[2023-03-21] MEDS ORDERED: LIDOCAINE 1% INJ 10MG/ML (30 ML VIAL-PF) SQ ONE (09:15)
[2023-03-21] MEDS ORDERED: SODIUM CHLORIDE 0.9% 1,000 ML IV ONE (09:15)
[2023-03-21] MEDS ORDERED: MIDAZOLAM 2 MG/2 ML VIAL IVP ONE (09:16)
[2023-03-21] MEDS ORDERED: fentaNYL (PF) 50 MCG/ML 2 ML AMP IVP ONE ×2 (09:16→09:43)
[2023-03-21] MEDS: NITROGLYCERIN 1000MCG/10ML SYRINGE INTRAARTER ONE (09:29)
[2023-03-21] MEDS ORDERED: ALTEPLASE 2 MG VIAL (CATHFLO) IA STA (09:32)
--- NOTE | 2023-03-21 10:07 | P.OP ---
Date of Procedure: 03/21/23 Description of Procedure: Preoperative diagnosis: Acute on chronic left lower extremity ischemia, nonvisualized of the popliteal vessels on imaging Postoperative diagnosis: Same Procedure: #1 ultrasound guided right common femoral artery access #2 left lower extremity selective angiogram third order at the superficial femoral artery #3 initiation of TPA thrombolysis #4 moderate conscious sedation 32 minutes with personal oversight of certified RN administration with personal hemodynamic monitoring Surgeon: Loree Field D.O. EBL: Less than 5 mL IV fluids: See records Urine output: Not measured Drains: None Complications: None immediately apparent Condition: Stable to ICU Operative indication and findings: Patient is a 68-year-old female with acute on chronic pain in her left lower extremity and evidence of some ischemic changes. On imaging there is no evidence of obvious large vessel thrombus however there was no good visualization of the tibial vessels therefore the patient is brought for an angiogram. Procedure in detail: Patient is brought to the operative suite and placed in supine position. The bilateral groins are prepped and draped in usual sterile fashion. A procedure time was performed, all parties are in ago. He is also, the right common femoral artery was identified. It was found to be patent without significant calcific disease. Permanent images stored. The artery was accessed with a micro-access needle and Seldinger technique was used to place a 5-[place] sheath. Catheters and wires were used to access the left iliac system. An angiogram was performed showing a widely patent iliac, common femoral, profunda and superficial femoral artery. The catheter was then advanced over a wire to the superficial femoral artery and an images performed showing a widely patent distal superficial femoral artery, up to artery. The infra-popliteal vessels filled other takeoff but became very diminutive and occluded shortly thereafter. There was no visualization of the posterior tibial artery. The decision was made to place a thrombolytic catheter to attempt to open any outflow channels. Prior to this the sheath was replaced with a long 6-[place] Rabi sheath. Catheter was placed at the upper popliteal vessel just into the tibial peroneal trunk. The wire was removed. The sheath was sutured in place. TPA thrombolysis was initiated. The patient tolerated the procedure well and transferred to ICU in stable condition
[2023-03-21] MEDS ORDERED: ALTEPLASE 2 MG VIAL (CATHFLO) IVPB ONE (10:15)
[2023-03-21] MEDS: ALTEPLASE 10 MG in SODIUM CHLORIDE 0.9% 90 ML IA ONE (10:19)
[2023-03-21] MEDS: MORPHINE SULFATE 4 MG/ML SYRINGE IVP PRN ×5 (10:51→23:18)
[2023-03-21 11:23] LABS: Anisocytosis Moderate; Basophils % (A) 0 %; Eosinophils % (A) 0 %; HCT 38.4 % (34.0-46.0); HGB 12.2 gm/dL (11.4-16.0); Lymphocytes # (A) 3.7 k/uL (1.0-4.8); Lymphocytes % (A) 44 %; MCH 27.9 pg (25.0-35.0); MCHC 31.7 g/dL (31.0-37.0); MCV 87.9 fL (80.0-100.0); Mean Platelet Volume 7.1; Microcytosis Slight; Monocytes # (A) 0.5 k/uL (0-1.0); Monocytes % (A) 6 %; Neutrophils # (A) 3.9 k/uL (1.3-7.7); Neutrophils % (A) 48 %; Platelet Count 182 k/uL (150-450); RBC 4.37 m/uL (3.80-5.40); RDW 22.6 % (11.5-15.5); WBC 8.3 k/uL (3.8-10.6)
[2023-03-21 11:26] LABS: Glucose,Whole Blood 83 mg/dL (70-110)
[2023-03-21 11:31] LABS: Prothrombin Time 10.6 sec (9.0-12.0)
[2023-03-21 11:39] LABS: African American GFR (CKD) >90 (>60 ml/min/1.73 sqM); Blood Urea Nitrogen 13 mg/dL (7-17); Non-African American GFR(CKD) >90 (>60 ml/min/1.73 sqM)
--- NOTE | 2023-03-21 16:29 | P.HPIM ---
History of Present Illness H&P Date: 03/21/23 Chief Complaint: Left foot/leg pain 68-year-old female presents emergency department for concerns of ischemic limb. She went to the urgent care and was found to have decreased dorsalis pedis pulse. She told to come to the emergency department. Over the last 3 days she's been having worsening pain. States that her pain was significantly elevated yesterday. Patient has had similar issues intermittently since September however over the last couple days as escalated. Patient noticed some mottling of the left foot. - Patient had CTA done in ED which showed patent left iliac, femoral and popliteal vessels; takeoff off anterior tibial peroneal trunk could be visualized without any further visualization below that level; patient was placed on IV heparin infusion -- Patient was evaluated by vascular surgery and is willing to be taken to vascular lab for angiogram and possible intervention Review of Systems REVIEW OF SYSTEMS: CONSTITUTIONAL: No fever, no malaise, no fatigue. HEENT: No recent visual problems or hearing problems. Denied any sore throat. CARDIOVASCULAR: No chest pain, orthopnea, PND, no palpitations, no syncope. PULMONARY: No shortness of breath, no cough, no hemoptysis. GASTROINTESTINAL: No diarrhea, no nausea, no vomiting, no abdominal pain. NEUROLOGICAL: No headaches, no weakness, no numbness. HEMATOLOGICAL: Denies any bleeding or petechiae. GENITOURINARY: Denies any burning micturition, frequency, or urgency. MUSCULOSKELETAL/RHEUMATOLOGICAL: Denies any joint pain, swelling, or any muscle pain. ENDOCRINE: Denies any polyuria or polydipsia. The rest of the 14-point review of systems is negative. Past Medical History Past Medical History: Cancer, Mitral Valve Prolapse (MVP) Additional Past Medical History / Comment(s): right breast cancer (2001- mastectomy with chemo)., vmz-[id number]-[id number] diet. Reynad's syndrome. History of Any Multi-Drug Resistant Organisms: None Reported Past Surgical History: Breast Surgery Additional Past Surgical History / Comment(s): right mastectomy, colonoscopy Past Anesthesia/Blood Transfusion Reactions: No Reported Reaction Past Psychological History: No Psychological Hx Reported Smoking Status: Current every day smoker Past Alcohol Use History: Rare Past Drug Use History: None Reported - Past Family History Father Family Medical History: Cancer Additional Family Medical History / Comment(s): prostate cancer Sister(s) Family Medical History: Cancer Additional Family Medical History / Comment(s): breast cancer Medications and Allergies Home Medications Medication Instructions Recorded Confirmed Type Ascorbic Acid [Vitamin C] 500 mg PO DAILY 06/16/22 03/21/23 History Cholecalciferol [Vitamin D3 (25 50 mcg PO DAILY 06/16/22 03/21/23 History Mcg = 1000 Iu)] [place]-3/Dha/Epa/Fish Oil [Fish Oil 1 cap PO DAILY 06/16/22 03/21/23 History 1,000 mg Softgel] Cyanocobalamin [Vitamin B-12] 1,000 mcg PO DAILY 11/19/22 03/21/23 History Calcium Carbonate [Calcium] 600 mg PO DAILY 03/21/23 03/21/23 History Repaglinide [Prandin] 0.5 mg PO AC-BID 03/21/23 03/21/23 History lisinopriL [Zestril] 10 mg PO HS 03/21/23 03/21/23 History predniSONE 30 mg PO HS 03/21/23 03/21/23 History Allergies Allergy/AdvReac Type Severity Reaction Status Date / Time No Known Allergies Allergy Verified 03/21/23 07:12 Physical Exam Vitals: Vital Signs Temp Pulse Resp BP Pulse Ox 03/21/23 07:41 97.8 F 60 16 121/65 97 03/21/23 04:56 56 L 18 130/62 96 03/21/23 00:36 76 18 125/78 96 03/20/23 23:14 97.4 F L 74 17 133/82 96 03/20/23 21:25 97.5 F L 60 18 164/83 98 03/20/23 18:02 98.2 F 75 18 171/89 96 Intake and Output 03/20/23 03/21/23 03/21/23 22:59 06:59 14:59 Other: Weight 54.885 kg PHYSICAL EXAMINATION: GENERAL: The patient is alert and oriented x3, not in any acute distress. Well developed, well nourished. HEENT: Pupils are round and equally reacting to light. EOMI. No scleral icterus. No conjunctival pallor. Normocephalic, atraumatic. No pharyngeal erythema. No thyromegaly. CARDIOVASCULAR: S1 and S2 present. No murmurs, rubs, or gallops. PULMONARY: Chest is clear to auscultation, no wheezing or crackles. ABDOMEN: Soft, nontender, nondistended, normoactive bowel sounds. No palpable organomegaly. MUSCULOSKELETAL: No joint swelling or deformity. EXTREMITIES: No cyanosis, clubbing, or pedal edema. NEUROLOGICAL: Gross neurological examination did not reveal any focal deficits. SKIN: No rashes. Results CBC & Chem 7: 03/21/23 10:58 03/21/23 10:58 Labs: Abnormal Lab Results - Last 24 Hours (Table) 03/20/23 03/20/23 03/20/23 Range/Units 21:47 21:47 21:59 WBC 10.8 H (3.8-10.6) k/uL RDW 22.2 H (11.5-15.5) % APTT 21.5 L (22.0-30.0) sec BUN 27 H (7-17) mg/dL Assessment and Plan Assessment: 1. Acute left limb ischemia - Patient is to be taken to the Do[facility] Operator for angiogram; if there is evidence of occlusive disease, patient will benefit from intervention in the form of angioplasty versus TPA thrombolysis versus vasodilatory injections. - Patient remains on IV heparin 2. Mild leukocytosis; likely reactive; no signs of infection - We will plan to monitor CBC and initiate sepsis workup if white blood count continues to trend up 3. Mild renal injury; BUN slightly elevated at 27; slow IV hydration; monitor strict KWAKU's and renal function; avoid nephrotoxins and hypotension 4. Hypertension; lisinopril 10 mg daily 5. Diabetes mellitus type 2; patient takes Prandin 0.5 mg twice a day; we will hold off on oral hypoglycemics and monitor Accu-Cheks before meals and at bedtime with insulin sliding scale 6. Vitamin D deficiency; continue with vitamin D3 2000 units by mouth daily; calcium carbonate 600 mg daily DVT prophylaxis; SCDs/IV heparin CODE STATUS; full code
[2023-03-21 17:11] LABS: Glucose,Whole Blood 127 mg/dL (70-110)
[2023-03-21 17:47] LABS: Anisocytosis Moderate; Basophils % (A) 0 %; Eosinophils # (A) 0.1 k/uL (0-0.7); Eosinophils % (A) 1 %; HCT 37.4 % (34.0-46.0); HGB 11.4 gm/dL (11.4-16.0); Lymphocytes # (A) 4.3 k/uL (1.0-4.8); Lymphocytes % (A) 47 %; MCH 26.7 pg (25.0-35.0); MCHC 30.5 g/dL (31.0-37.0); MCV 87.3 fL (80.0-100.0); Mean Platelet Volume 7.5; Microcytosis Slight; Monocytes # (A) 0.6 k/uL (0-1.0); Monocytes % (A) 7 %; Neutrophils # (A) 4.1 k/uL (1.3-7.7); Neutrophils % (A) 44 %; Platelet Count 177 k/uL (150-450); RBC 4.29 m/uL (3.80-5.40); RDW 22.4 % (11.5-15.5); WBC 9.2 k/uL (3.8-10.6)
[2023-03-21] MEDS: HYDROcodone/APAP 5-325MG 1 EACH TAB PO PRN (20:23)
[2023-03-21 20:38] LABS: Glucose,Whole Blood 166 mg/dL (70-110)
[2023-03-21 22:49] LABS: Anisocytosis Moderate; Basophils % (A) 0 %; Eosinophils # (A) 0.1 k/uL (0-0.7); Eosinophils % (A) 1 %; HCT 34.5 % (34.0-46.0); HGB 11.5 gm/dL (11.4-16.0); Lymphocytes # (A) 3.6 k/uL (1.0-4.8); Lymphocytes % (A) 43 %; MCH 29.1 pg (25.0-35.0); MCHC 33.4 g/dL (31.0-37.0); MCV 87.2 fL (80.0-100.0); Mean Platelet Volume 7.6; Microcytosis Slight; Monocytes # (A) 0.5 k/uL (0-1.0); Monocytes % (A) 6 %; Neutrophils # (A) 4.2 k/uL (1.3-7.7); Neutrophils % (A) 49 %; Platelet Count 155 k/uL (150-450); RBC 3.96 m/uL (3.80-5.40); RDW 22.6 % (11.5-15.5); WBC 8.5 k/uL (3.8-10.6)
[2023-03-22] MEDS: ALTEPLASE 10 MG in SODIUM CHLORIDE 0.9% 90 ML IA ONE (01:22)
[2023-03-22] MEDS: MORPHINE SULFATE 4 MG/ML SYRINGE IVP PRN ×3 (02:41→11:06)
[2023-03-22 06:13] LABS: Anisocytosis Moderate; Basophils % (A) 0 %; Eosinophils # (A) 0.1 k/uL (0-0.7); Eosinophils % (A) 1 %; HCT 39.1 % (34.0-46.0); Hypochromasia Slight; Lymphocytes # (A) 3.9 k/uL (1.0-4.8); Lymphocytes % (A) 36 %; MCH 27.2 pg (25.0-35.0); MCHC 30.7 g/dL (31.0-37.0); MCV 88.7 fL (80.0-100.0); Mean Platelet Volume 7.4; Microcytosis Slight; Monocytes # (A) 0.6 k/uL (0-1.0); Monocytes % (A) 6 %; Neutrophils # (A) 6.2 k/uL (1.3-7.7); Neutrophils % (A) 57 %; Platelet Count 154 k/uL (150-450); RBC 4.41 m/uL (3.80-5.40); RDW 22.2 % (11.5-15.5); WBC 10.9 k/uL (3.8-10.6)
[2023-03-22 06:24] LABS: African American GFR (CKD) >90 (>60 ml/min/1.73 sqM); Anion Gap 4 mmol/L; Blood Urea Nitrogen 15 mg/dL (7-17); Calcium 8.5 mg/dL (8.4-10.2); Carbon Dioxide 28 mmol/L (22-30); Chloride 106 mmol/L (98-107); Glucose 83 mg/dL (74-99); Non-African American GFR(CKD) >90 (>60 ml/min/1.73 sqM); Potassium 4.2 mmol/L (3.5-5.1); Sodium 138 mmol/L (137-145)
[2023-03-22 06:27] LABS: INR 1.1 (<1.2); Prothrombin Time 11.1 sec (9.0-12.0)
[2023-03-22 06:50] LABS: Glucose,Whole Blood 82 mg/dL (70-110)
[2023-03-22] MEDS ORDERED: IV FLUID CONTINUATION 400 ML IV ONE (07:45)
[2023-03-22] MEDS ORDERED: fentaNYL (PF) 50 MCG/ML 2 ML AMP ONE (07:54)
[2023-03-22] MEDS ORDERED: LIDOCAINE 1% INJ 10MG/ML (20 ML MDV) ONE (07:54)
[2023-03-22] MEDS: MIDAZOLAM 2 MG/2 ML VIAL IVP ONE ×3 (08:10→08:47)
[2023-03-22] MEDS: fentaNYL (PF) 50 MCG/ML 2 ML AMP IVP ONE ×3 (08:13→08:44)
[2023-03-22] MEDS ORDERED: LIDOCAINE 1% INJ 10MG/ML (20 ML MDV) SQ ONE (08:14)
[2023-03-22] MEDS ORDERED: NITROGLYCERIN 1000MCG/10ML SYRINGE INTRAARTER ONE (08:39)
[2023-03-22] MEDS: NITROGLYCERIN 1000MCG/10ML SYRINGE INTRAARTER ONE (08:58)
--- NOTE | 2023-03-22 09:30 | P.OP ---
Date of Procedure: 03/22/23 Description of Procedure: Preoperative diagnosis: Acute on chronic left lower extremity ischemia, previous initiation of TPA Postoperative diagnosis: Same Procedure: Left lower extremity angiogram via existing catheter PTBA left posterior tibial artery with 1.5 x 120 and 2.5 x 200 balloon Right iliofemoral angiogram Moderate conscious sedation 56 minutes, personal monitoring certified RN administration with hemodynamic monitoring Surgeon: Loree Field D.O. EBL: Less than 10 mL IV fluids: See records Urine output: See records Drains: None Complications: None immediately apparent Condition: Stable Operative indication and findings: Patient is a 68-year-old female who was initiated on TPA yesterday and brought back for the rechecked today. Risks and benefits were discussed Surgicel and her symptoms like to proceed. Procedure in detail: Patient was taken to the special suite and placed in supine position. The previously placed catheter was prepped and draped in usual sterile fashion. A preprocedure timeout was performed, all parties were in agreement. A guidewire was placed through the existing catheter catheter was removed and an angiogram was performed. The picture looked extremely similar to yesterday where the popliteal artery is patent, the anterior tibial artery occludes shortly after its takeoff. The peroneal artery is patent to the mid calf. A catheter was placed down into the popliteal artery and further direction images performed. There is no evidence of further collateral flow or runoff into the ankle. There was a small takeoff of the posterior tibial artery visualized and catheters and wires were used to traverse this area and it did appear that we had crossed to luminal pain at the very distal posterior tibial artery. A 2.5 by 200 balloon was utilized to angioplasty this area. Repeat images performed and no significant improvement to the vessels identified. The catheter was then placed into the posterior tibial artery images performed and there was a small perforation. When the catheter was withdrawn back through the tibial peroneal trunk again there was no visualized posterior tibial artery. Nitro glycerin was utilized. Attempts were made to traverse area again in 1.5 balloon was used further distally again I conclusion there was no visualized posterior tibial from the tibial peroneal trunk images. That point there was evidence of spasm as well to the peroneal artery. Drawback image was performed revealing widely patent peroneal artery. Residual TPA was instilled into the vessels also nitroglycerin. Catheters and wires were then removed. A right iliofemoral angiogram was performed showing adequate access and a vascular closu re device was utilized
[2023-03-22] MEDS: NITROGLYCERIN 0.4MG/HR PATCH TRANSDERM SCH (10:52)
[2023-03-22] MEDS ORDERED: HEPARIN SODIUM 1,000 UN/ML (10ML VL) IV PRN (11:09)
[2023-03-22] MEDS ORDERED: NALOXONE 0.4 MG/ML 1 ML VIAL IV PRN (11:14)
[2023-03-22 11:38] LABS: Glucose,Whole Blood 97 mg/dL (70-110)
[2023-03-22] MEDS: HEPARIN SOD,PORK IN 0.45% NACL 25,000 UNIT in 0.45% NACL 1 250ML.BAG IV SCH (12:45)
[2023-03-22 12:47] LABS: Anisocytosis Moderate; Basophils % (A) 0 %; Eosinophils % (A) 0 %; HCT 40.1 % (34.0-46.0); HGB 12.7 gm/dL (11.4-16.0); Lymphocytes # (A) 2.6 k/uL (1.0-4.8); Lymphocytes % (A) 23 %; MCH 27.9 pg (25.0-35.0); MCHC 31.6 g/dL (31.0-37.0); MCV 88.3 fL (80.0-100.0); Mean Platelet Volume 7.1; Microcytosis Slight; Monocytes # (A) 0.7 k/uL (0-1.0); Monocytes % (A) 6 %; Neutrophils # (A) 7.5 k/uL (1.3-7.7); Neutrophils % (A) 69 %; Platelet Count 168 k/uL (150-450); RBC 4.54 m/uL (3.80-5.40); RDW 22.1 % (11.5-15.5); WBC 10.9 k/uL (3.8-10.6)
[2023-03-22] MEDS: MORPHINE PCA 50 MG/50 ML BAG IV PRN (12:52)
[2023-03-22 13:03] LABS: Partial Thromboplastin Time 22.2 sec (22.0-30.0); Prothrombin Time 10.8 sec (9.0-12.0)
[2023-03-22] MEDS: HYDROcodone/APAP 5-325MG 1 EACH TAB PO PRN (13:14)
[2023-03-22 16:16] LABS: Glucose,Whole Blood 124 mg/dL (70-110)
[2023-03-22] MEDS: GABAPENTIN 300 MG CAP PO SCH ×2 (16:17→22:54)
[2023-03-22] MEDS: lisinopriL 10 MG TAB PO SCH (16:17)
--- NOTE | 2023-03-22 16:44 | P.PN ---
Subjective Progress Note Date: 03/22/23 Principal diagnosis: Critical ischemia 68-year-old female presents emergency department for concerns of ischemic limb. She went to the urgent care and was found to have decreased dorsalis pedis pulse. She told to come to the emergency department. Over the last 3 days she's been having worsening pain. States that her pain was significantly elevated yesterday. Patient has had similar issues intermittently since September however over the last couple days as escalated. Patient noticed some mottling of the left foot. - Patient had CTA done in ED which showed patent left iliac, femoral and popliteal vessels; takeoff off anterior tibial peroneal trunk could be visualized without any further visualization below that level; patient was placed on IV heparin infusion -- Patient was evaluated by vascular surgery and is willing to be taken to vascular lab for angiogram and possible intervention Patient taken to vascular lab again this morning for left lower extremity angiogram via existing catheter -- Patient discussed with vascular surgery; further plan of care pending clinical course Objective - Vital Signs Vital signs: Vital Signs Temp 98.3 F 03/22/23 12:00 Pulse 84 03/22/23 14:00 Resp 18 03/22/23 14:00 BP 153/92 03/22/23 14:00 Pulse Ox 94 L 03/22/23 14:00 FiO2 Intake & Output 03/21/23 03/22/23 03/22/23 18:59 06:59 18:59 Intake Total 810.48 1120 525 Output Total 795 2235 580 Balance 15.48 -1115 -55 Weight 54.885 kg 56.6 kg Intake: IV 700 900 525 Sodium Chloride 0.9% 1, 600 900 525 000 ml @ 75 mls/hr IV . [id number] DAIANA Rx#:[id number] Intake, IV Titration 110.48 Amount Heparin Sod,Pork in 0.45% 110.48 NaCl 25,000 unit In 0.45 % NaCl 1 250ml.bag @ 18 UNITS/KG/HR 9.879 mls/hr IV .Q24H DAIANA Rx#: [id number] Oral 220 Output: Urine 795 2235 580 Other: Voiding Method Indwelling Catheter Indwelling Catheter # Bowel Movements 1 - Exam PHYSICAL EXAMINATION: GENERAL: The patient is alert and oriented x3, not in any acute distress. Well developed, well nourished. HEENT: Pupils are round and equally reacting to light. EOMI. No scleral icterus. No conjunctival pallor. Normocephalic, atraumatic. No pharyngeal erythema. No thyromegaly. CARDIOVASCULAR: S1 and S2 present. No murmurs, rubs, or gallops. PULMONARY: Chest is clear to auscultation, no wheezing or crackles. ABDOMEN: Soft, nontender, nondistended, normoactive bowel sounds. No palpable organomegaly. MUSCULOSKELETAL: No joint swelling or deformity. EXTREMITIES: No cyanosis, clubbing, or pedal edema. NEUROLOGICAL: Gross neurological examination did not reveal any focal deficits. SKIN: No rashes. - Labs CBC & Chem 7: 03/22/23 12:15 03/22/23 05:46 Labs: Abnormal Lab Results - Last 24 Hours (Table) 03/21/23 03/21/23 03/21/23 Range/Units 17:09 17:21 20:37 WBC (3.8-10.6) k/uL MCHC 30.5 L (31.0-37.0) g/dL RDW 22.4 H (11.5-15.5) % POC Glucose (mg/dL) 127 H 166 H (70-110) mg/dL 03/21/23 03/22/23 03/22/23 Range/Units 22:33 05:46 12:15 WBC 10.9 H 10.9 H (3.8-10.6) k/uL MCHC 30.7 L (31.0-37.0) g/dL RDW 22.6 H 22.2 H 22.1 H (11.5-15.5) % POC Glucose (mg/dL) (70-110) mg/dL Assessment and Plan Assessment: 1. Acute left limb ischemia - Patient is to be taken to the [facility]ceiving [facility] for angiogram; if there is evidence of occlusive disease, patient will benefit from intervention in the form of angioplasty versus TPA thrombolysis versus vasodilatory injections. - Patient remains on IV heparin 2. Mild leukocytosis; likely reactive; no signs of infection - We will plan to monitor CBC and initiate sepsis workup if white blood count continues to trend up 3. Mild renal injury; BUN slightly elevated at 27; slow IV hydration; monitor strict KWAKU's and renal function; avoid nephrotoxins and hypotension 4. Hypertension; lisinopril 10 mg daily 5. Diabetes mellitus type 2; patient takes Prandin 0.5 mg twice a day; we will hold off on oral hypoglycemics and monitor Accu-Cheks before meals and at bedtime with insulin sliding scale 6. Vitamin D deficiency; continue with vitamin D3 2000 units by mouth daily; calcium carbonate 600 mg daily DVT prophylaxis; SCDs/IV heparin CODE STATUS; full code
[2023-03-22 19:26] LABS: Partial Thromboplastin Time 37.2 sec (22.0-30.0)
[2023-03-22 20:01] LABS: Glucose,Whole Blood 140 mg/dL (70-110)
[2023-03-22] MEDS: SODIUM CHLORIDE 0.9% 1,000 ML IV SCH (21:16)
[2023-03-23] MEDS: HEPARIN SOD,PORK IN 0.45% NACL 25,000 UNIT in 0.45% NACL 1 250ML.BAG IV SCH (00:52)
[2023-03-23] MEDS: SODIUM CHLORIDE 0.9% 1,000 ML IV SCH ×2 (00:56→14:10)
[2023-03-23 02:12] LABS: Anisocytosis Moderate; Basophils % (A) 0 %; Eosinophils # (A) 0.1 k/uL (0-0.7); Eosinophils % (A) 1 %; Lymphocytes # (A) 3.5 k/uL (1.0-4.8); Lymphocytes % (A) 31 %; MCH 28.2 pg (25.0-35.0); MCHC 32.3 g/dL (31.0-37.0); MCV 87.3 fL (80.0-100.0); Mean Platelet Volume 7.9; Microcytosis Slight; Monocytes # (A) 0.8 k/uL (0-1.0); Monocytes % (A) 7 %; Neutrophils # (A) 6.7 k/uL (1.3-7.7); Neutrophils % (A) 60 %; Platelet Count 141 k/uL (150-450); RBC 3.89 m/uL (3.80-5.40); RDW 22.3 % (11.5-15.5); WBC 11.2 k/uL (3.8-10.6)
[2023-03-23] MEDS: HYDROcodone/APAP 5-325MG 1 EACH TAB PO PRN ×4 (03:00→22:54)
[2023-03-23] MEDS: MORPHINE PCA 50 MG/50 ML BAG IV PRN ×2 (03:47→23:21)
[2023-03-23 07:25] LABS: Glucose,Whole Blood 120 mg/dL (70-110)
[2023-03-23] MEDS: NITROGLYCERIN 0.4MG/HR PATCH TRANSDERM SCH (07:58)
[2023-03-23] MEDS: GABAPENTIN 300 MG CAP PO SCH ×3 (07:59→22:56)
--- NOTE | 2023-03-23 09:08 | IR ---
EXAMINATION TYPE: IR angio abdominal w runoff DATE OF EXAM: 03/21/2023 COMPARISON: NONE HISTORY: Fluoroscopy time. Fluoroscopy was provided to the referring clinician.
--- NOTE | 2023-03-23 09:11 | IR ---
EXAMINATION TYPE: IR motorized squad captain tibioperoneal branchs DATE OF EXAM: 03/22/2023 COMPARISON: NONE HISTORY: Fluoroscopy time. Fluoroscopy was provided to the referring clinician.
[2023-03-23 11:23] LABS: Glucose,Whole Blood 105 mg/dL (70-110)
[2023-03-23 13:09] VITALS: BMI 20.5
[2023-03-23] MEDS ORDERED: DEXTROSE 50% SYRINGE 50 ML IVP PRN ×2 (13:25)
--- NOTE | 2023-03-23 13:26 | P.PN ---
Subjective Progress Note Date: 03/23/23 68-year-old female presents emergency department for concerns of ischemic limb. She went to the urgent care and was found to have decreased dorsalis pedis pulse. She told to come to the emergency department. Over the last 3 days she's been having worsening pain. States that her pain was significantly elevated yesterday. Patient has had similar issues intermittently since September however over the last couple days as escalated. Patient noticed some mottling of the left foot. - Patient had CTA done in ED which showed patent left iliac, femoral and popliteal vessels; takeoff off anterior tibial peroneal trunk could be visualized without any further visualization below that level; patient was placed on IV heparin infusion -- Patient was evaluated by vascular surgery and is willing to be taken to vascular lab for angiogram and possible intervention Patient taken to vascular lab again this morning for left lower extremity angiogram via existing catheter -- Patient discussed with vascular surgery; further plan of care pending clinical course 03/23. Patient seen and examined. Currently nothing by mouth, going for surgery today. REVIEW OF SYSTEMS: CONSTITUTIONAL: No fever, no malaise,. CARDIOVASCULAR: No chest pain, no palpitations, no syncope. PULMONARY: No shortness of breath, no cough, GASTROINTESTINAL: No diarrhea, no nausea, no vomiting, no abdominal pain. NEUROLOGICAL: No headaches, no weakness, PHYSICAL EXAMINATION: GENERAL: The patient is alert and oriented x3, not in any acute distress. Well developed, well nourished. HEENT: Pupils are round and equally reacting to light. EOMI. No scleral icterus. No conjunctival pallor. Normocephalic, atraumatic. No pharyngeal erythema. No thyromegaly. CARDIOVASCULAR: S1 and S2 present. No murmurs, rubs, or gallops. PULMONARY: Chest is clear to auscultation, no wheezing or crackles. ABDOMEN: Soft, nontender, nondistended, normoactive bowel sounds. No palpable organomegaly. MUSCULOSKELETAL: No joint swelling or deformity. EXTREMITIES: No cyanosis, clubbing, or pedal edema. NEUROLOGICAL: Gross neurological examination did not reveal any focal deficits. SKIN: No rashes. Assessment and plan Acute left limb ischemia Monitor vital signs Monitor CBC Continue neurovascular checks Continue pharmacy dose heparin Vascular surgery on board Mild leukocytosis; likely reactive; no signs of infection Mild renal injury; BUN slightly elevated at 27; slow IV hydration; monitor strict KWAKU's and renal function; avoid nephrotoxins and hypotension Hypertension; lisinopril 10 mg daily Diabetes mellitus type 2; patient takes Prandin 0.5 mg twice a day; we will hold off on oral hypoglycemics and monitor Accu-Cheks before meals and at bedtime with insulin sliding scale 6. Vitamin D deficiency; continue with vitamin D3 2000 units by mouth daily; calcium carbonate 600 mg daily Objective - Vital Signs Vital signs: Vital Signs Temp 97.8 F 03/23/23 12:00 Pulse 80 03/23/23 13:00 Resp 14 03/23/23 13:00 BP 132/80 03/23/23 13:00 Pulse Ox 97 03/23/23 13:00 FiO2 Intake & Output 03/22/23 03/23/23 03/23/23 18:59 06:59 18:59 Intake Total 750 1568.275 444.995 Output Total 915 2180 515 Balance -165 -611.725 -70.005 Weight 54.2 kg 54.2 kg Intake: IV 750 900 375 Sodium Chloride 0.9% 1, 750 900 375 000 ml @ 75 mls/hr IV . [id number] DAIANA Rx#:[id number] Intake, IV Titration 128.275 69.995 Amount Heparin Sod,Pork in 0.45% 128.275 69.995 NaCl 25,000 unit In 0.45 % NaCl 1 250ml.bag @ 18 UNITS/KG/HR 10.188 mls/hr IV .Q24H DAIANA Rx#: [id number] Oral 540 Output: Urine 915 2180 515 Other: Voiding Method Indwelling Catheter Indwelling Catheter Indwelling Catheter # Bowel Movements 1 - Labs CBC & Chem 7: 03/23/23 02:01 03/22/23 05:46 Labs: Abnormal Lab Results - Last 24 Hours (Table) 03/22/23 03/22/23 03/22/23 Range/Units 16:14 18:32 20:00 WBC (3.8-10.6) k/uL Hgb (11.4-16.0) gm/dL RDW (11.5-15.5) % Plt Count (150-450) k/uL APTT 37.2 H (22.0-30.0) sec POC Glucose (mg/dL) 124 H 140 H (70-110) mg/dL 03/23/23 03/23/23 03/23/23 Range/Units 02:01 02:01 07:24 WBC 11.2 H (3.8-10.6) k/uL Hgb 11.0 L (11.4-16.0) gm/dL RDW 22.3 H (11.5-15.5) % Plt Count 141 L (150-450) k/uL APTT 61.1 H (22.0-30.0) sec POC Glucose (mg/dL) 120 H (70-110) mg/dL
[2023-03-23 16:47] LABS: Glucose,Whole Blood 95 mg/dL (70-110)
[2023-03-23] MEDS ORDERED: PROPOFOL 10 MG/ML 20 ML VIAL IV ONE (17:22)
[2023-03-23] MEDS ORDERED: ONDANSETRON 4 MG/2 ML VIAL ONE (17:22)
[2023-03-23] MEDS ORDERED: MIDAZOLAM 2 MG/2 ML VIAL ONE (17:22)
[2023-03-23] MEDS ORDERED: PHENYLEPHRINE 10 MG/ML VIAL ONE (17:22)
[2023-03-23] MEDS ORDERED: LIDOCAINE 2% INJ 20 MG/ML (2 ML VIAL) ONE (17:22)
[2023-03-23] MEDS ORDERED: fentaNYL (PF) 50 MCG/ML 2 ML AMP ONE (17:22)
[2023-03-23] MEDS ORDERED: ROCURONIUM 10 MG/ML (5 ML VIAL) IV ONE (17:22)
[2023-03-23] MEDS ORDERED: GLYCOPYRROLATE 0.2 MG/ML 2 ML VIAL ONE (17:22)
[2023-03-23] MEDS ORDERED: SUCCINYLCHOLINE CHLORIDE 200 MG/10 ML VIAL IV ONE (17:22)
[2023-03-23] MEDS ORDERED: NEOSTIGMINE 1 MG/ML 10 ML VIAL ONE (17:22)
--- NOTE | 2023-03-23 17:28 | P.PN ---
Progress Note - Text Progress Note Date: 03/23/23 Patient seen and examined. Multiple questions answered prior to surgery regarding physical therapy, cost and insurance coverages. She seemingly understands the plan for below-knee amputation on the left today with QUESTIONS answered. Plan to go forth with surgery. Heparin has been on hold since this a.m.
[2023-03-23] MEDS ORDERED: SODIUM CHLORIDE 0.9% 50 ML with ceFAZolin 2,000 MG IV ONE ×2 (17:30)
[2023-03-23] MEDS ORDERED: IV FLUID CONTINUATION 800 ML IV ONE (17:30)
--- NOTE | 2023-03-23 18:50 | P.OP ---
Date of Procedure: 03/23/23 Description of Procedure: PREOPERATIVE DIAGNOSIS: acute on chronic left lower extremity ischemia POSTOPERATIVE DIAGNOSIS: same OPERATION: left below knee amputation. SURGEON: Loree Field DO ELECTRONIC ENGINEERING TECHNICIAN: gia. ANESTHESIA: GET ESTIMATED BLOOD LOSS: 75cc SPECIMENS REMOVED: left leg COMPLICATIONS: none CONDITION:stable to recovery FINDINGS AND INDICATIONS: Pt is a 68 year old female who previously presented to the ER with acute on chronic left lower extremity limb ischemia. She was having an angiogram which showed no outflow. TPA was utilized and so there was no improvement of her distal outflow. She continued to have worsening of her ischemic pain and therefore low are extremity below-knee amputation was offered. Risks and benefits were discussed. She seemingly understood and was willing to proceed. PROCEDURE IN DETAIL: The patient was brought to the operating room, the operative leg was prepped and draped in the usual sterile manner. 10 cm below the tibial plateau was marked. The calf circumference was measured. Two thirds was utilized for the anterior incision, one third was utilized to create the flap. The incision was marked. The incision was deepened through the subcutaneous tissue and fascia to the level of the bone. The fascia was transe cted around the level of the incision. Anterior compartment muscles were divided and visualized to the tibial vessels which were suture ligated with 2-0 silk. Then the lateral compartment muscles were divided. Dissection was carried down to the level of the bone. The periosteal elevator was used and the tibia was freed from its periosteal tissues. The tibia was divided with an oscillating saw. The same was done of the fibula, approximately 1-1/2-2 cm more proximal to the tibia itself. The posterior flap was created with an amputation knife. Bleeding was controlled with suture ligation of the vessels. Electrocautery was also used for hemostasis. The specimen was removed. The wound was copiously irrigated. The tibia and fibula were smoothed with a rasp. 2-0 and 3-0 Vicryl was utilized to approximate the fascia. The skin was reapproximated with gabriel. The incsion was cleansed and a dressing was placed. The patient was extubated and transferred to PACU in stable condition having tolerated the procedure well
[2023-03-23] MEDS ORDERED: HYDROmorphone 0.5 MG/0.5 ML SYRINGE IVP ONE ×5 (18:55→20:05)
[2023-03-23] MEDS: INSULIN ASPART (NovoLOG) 100 UNIT/ML VIAL SQ SCH ×2 (19:33→22:33)
[2023-03-23] MEDS ORDERED: ENALAPRILAT 1.25 MG/ML 1 ML VIAL IVP ONE ×2 (19:35→19:57)
[2023-03-23] MEDS ORDERED: LABETALOL SYRINGE 5 MG/ML IVP ONE (20:51)
[2023-03-23 22:35] LABS: Glucose,Whole Blood 116 mg/dL (70-110)
[2023-03-23] MEDS: lisinopriL 10 MG TAB PO SCH (22:56)
[2023-03-24] MEDS: HYDROcodone/APAP 5-325MG 1 EACH TAB PO PRN ×5 (03:57→21:48)
[2023-03-24 06:32] LABS: Glucose,Whole Blood 99 mg/dL (70-110)
[2023-03-24] MEDS: INSULIN ASPART (NovoLOG) 100 UNIT/ML VIAL SQ SCH ×4 (06:35→21:26)
[2023-03-24] MEDS ORDERED: lisinopriL 5 MG TAB PO STA (07:01)
[2023-03-24] MEDS: MORPHINE SULFATE 4 MG/ML SYRINGE IVP PRN ×2 (08:49→11:22)
[2023-03-24] MEDS: GABAPENTIN 300 MG CAP PO SCH ×3 (09:04→21:48)
[2023-03-24] MEDS: NITROGLYCERIN 0.4MG/HR PATCH TRANSDERM SCH (09:04)
[2023-03-24 11:57] LABS: Glucose,Whole Blood 142 mg/dL (70-110)
[2023-03-24] MEDS: SODIUM CHLORIDE 0.9% 1,000 ML IV SCH (12:19)
--- NOTE | 2023-03-24 12:20 | P.PN ---
Subjective Progress Note Date: 03/24/23 Patient seen and examined. No complaints. 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 [id number] DAIANA Rx#:[id number] Intake, IV Titration 69.995 Amount Heparin Sod,Pork in 0.45% 69.995 NaCl 25,000 unit In 0.45 % NaCl 1 250ml.bag @ 18 UNITS/KG/HR 10.188 mls/hr IV .Q24H DAIANA Rx#: [id number] Oral 1620 Output: Urine 510 3040 1765 Estimated Blood Loss 75 Other: Voiding Method Indwelling Catheter Indwelling Catheter - Exam No acute distress. Dressing clean, dry, intact. Sitting in a chair - Labs CBC & Chem 7: 03/23/23 02:01 03/22/23 05:46 Labs: Abnormal Lab Results - Last 24 Hours (Table) 03/23/23 03/24/23 Range/Units 22:33 11:56 POC Glucose (mg/dL) 116 H 142 H (70-110) mg/dL Assessment and Plan Assessment: Status post left below-knee amputation Plan: Continue dressing, plan changed tomorrow. Consult comfort for a rigid dressing and stump fan engine engineer
[2023-03-24] MEDS: MORPHINE PCA 50 MG/50 ML BAG IV PRN ×2 (13:22→21:09)
--- NOTE | 2023-03-24 13:52 | P.PN ---
Subjective Progress Note Date: 03/24/23 68-year-old female presents emergency department for concerns of ischemic limb. She went to the urgent care and was found to have decreased dorsalis pedis pulse. She told to come to the emergency department. Over the last 3 days she's been having worsening pain. States that her pain was significantly elevated yesterday. Patient has had similar issues intermittently since September however over the last couple days as escalated. Patient noticed some mottling of the left foot. - Patient had CTA done in ED which showed patent left iliac, femoral and popliteal vessels; takeoff off anterior tibial peroneal trunk could be visualized without any further visualization below that level; patient was placed on IV heparin infusion -- Patient was evaluated by vascular surgery and is willing to be taken to vascular lab for angiogram and possible intervention Patient taken to vascular lab again this morning for left lower extremity angiogram via existing catheter -- Patient discussed with vascular surgery; further plan of care pending clinical course 03/23. Patient seen and examined. Currently nothing by mouth, going for surgery today. 03/24 patient seen and examined. Patient is status post left BKA. Currently on GOLF STUD RIVETER. Still has phantom pains REVIEW OF SYSTEMS: CONSTITUTIONAL: No fever, no malaise,. CARDIOVASCULAR: No chest pain, no palpitations, no syncope. PULMONARY: No shortness of breath, no cough, GASTROINTESTINAL: No diarrhea, no nausea, no vomiting, no abdominal pain. NEUROLOGICAL: No headaches, no weakness, PHYSICAL EXAMINATION: GENERAL: The patient is alert and oriented x3, not in any acute distress. Well developed, well nourished. HEENT: Pupils are round and equally reacting to light. EOMI. No scleral icterus. No conjunctival pallor. Normocephalic, atraumatic. No pharyngeal erythema. No thyromegaly. CARDIOVASCULAR: S1 and S2 present. No murmurs, rubs, or gallops. PULMONARY: Chest is clear to auscultation, no wheezing or crackles. ABDOMEN: Soft, nontender, nondistended, normoactive bowel sounds. No palpable organomegaly. MUSCULOSKELETAL: No joint swelling or deformity. Left BKA EXTREMITIES: No cyanosis, clubbing, or pedal edema. NEUROLOGICAL: Gross neurological examination did not reveal any focal deficits. SKIN: No rashes. Assessment and plan Acute left limb ischemia Monitor vital signs Monitor CBC Continue neurovascular checks Status post left BKA Continue wound care Vascular surgery on board PT and OT consulted Mild leukocytosis; likely reactive; no signs of infection Mild renal injury; BUN slightly elevated at 27; slow IV hydration; monitor strict KWAKU's and renal function; avoid nephrotoxins and hypotension Hypertension; lisinopril 10 mg daily Diabetes mellitus type 2; patient takes Prandin 0.5 mg twice a day; we will hold off on oral hypoglycemics and monitor Accu-Cheks before meals and at bedtime with insulin sliding scale 6. Vitamin D deficiency; continue with vitamin D3 2000 units by mouth daily; calcium carbonate 600 mg daily Objective - Vital Signs Vital signs: Vital Signs Temp 98.5 F 03/24/23 12:00 Pulse 98 03/24/23 12:00 Resp 15 03/24/23 12:00 BP 108/89 03/24/23 12:00 Pulse Ox 91 L 03/24/23 12:00 FiO2 Intake & Output 03/23/23 03/24/23 03/24/23 18:59 06:59 18:59 Intake Total 2822.810 3951 60 Output Total 585 3040 1765 Balance 909.995 -1320 -1705 Weight 54.2 kg 58 kg Intake: IV 1425 100 60 0.9 @ KVO 100 60 Sodium Chloride 0.9% 1, 675 000 ml @ 75 mls/hr IV . [id number] [facility] Rx#:[id number] Intake, IV Titration 69.995 Amount Heparin Sod,Pork in 0.45% 69.995 NaCl 25,000 unit In 0.45 % NaCl 1 250ml.bag @ 18 UNITS/KG/HR 10.188 mls/hr IV .Q24H [facility] Rx#: [id number] Oral 1620 Output: Urine 510 3040 1765 Estimated Blood Loss 75 Other: Voiding Method Indwelling Catheter Indwelling Catheter - Labs CBC & Chem 7: 03/23/23 02:01 03/22/23 05:46 Labs: Abnormal Lab Results - Last 24 Hours (Table) 03/23/23 03/24/23 Range/Units 22:33 11:56 POC Glucose (mg/dL) 116 H 142 H (70-110) mg/dL
[2023-03-24 16:23] LABS: Glucose,Whole Blood 161 mg/dL (70-110)
[2023-03-24 20:43] LABS: Glucose,Whole Blood 151 mg/dL (70-110)
[2023-03-24] MEDS: lisinopriL 10 MG TAB PO SCH (21:48)
[2023-03-25] MEDS: HYDROcodone/APAP 5-325MG 1 EACH TAB PO PRN ×5 (03:12→19:54)
[2023-03-25 04:14] LABS: Anisocytosis Moderate; HCT 34.6 % (34.0-46.0); HGB 10.6 gm/dL (11.4-16.0); MCH 27.2 pg (25.0-35.0); MCHC 30.6 g/dL (31.0-37.0); Mean Platelet Volume 7.3; Microcytosis Slight; Platelet Count 159 k/uL (150-450); RBC 3.89 m/uL (3.80-5.40); RDW 21.4 % (11.5-15.5); WBC 9.9 k/uL (3.8-10.6)
[2023-03-25 04:25] LABS: ALT 17 U/L (4-34); AST 31 U/L (14-36); African American GFR (CKD) >90 (>60 ml/min/1.73 sqM); Albumin 3.2 g/dL (3.5-5.0); Alkaline Phosphatase 38 U/L (38-126); Anion Gap 5 mmol/L; Blood Urea Nitrogen 12 mg/dL (7-17); Calcium 8.4 mg/dL (8.4-10.2); Carbon Dioxide 32 mmol/L (22-30); Chloride 99 mmol/L (98-107); Glucose 101 mg/dL (74-99); Non-African American GFR(CKD) >90 (>60 ml/min/1.73 sqM); Potassium 3.6 mmol/L (3.5-5.1); Sodium 136 mmol/L (137-145); Total Bilirubin 0.5 mg/dL (0.2-1.3); Total Protein 5.8 g/dL (6.3-8.2)
[2023-03-25 06:35] LABS: Glucose,Whole Blood 120 mg/dL (70-110)
[2023-03-25] MEDS: INSULIN ASPART (NovoLOG) 100 UNIT/ML VIAL SQ SCH ×4 (06:56→21:23)
[2023-03-25] MEDS: GABAPENTIN 300 MG CAP PO SCH ×3 (08:30→21:23)
[2023-03-25] MEDS: NITROGLYCERIN 0.4MG/HR PATCH TRANSDERM SCH (08:30)
[2023-03-25] MEDS: MORPHINE SULFATE 2 MG/ML SYRINGE IVP PRN ×4 (08:31→14:53)
--- NOTE | 2023-03-25 09:04 | P.PN ---
Subjective Progress Note Date: 03/25/23 Patient seen and examined. No complaints. Still using her RESPIRATORY EQUIPMENT ASSISTANT, made a time schedule so she could get as much of the medication as possible to avoid any type of pain Objective - Vital Signs Vital signs: Vital Signs Temp 98.6 F 03/25/23 08:00 Pulse 96 03/25/23 08:00 Resp 16 03/25/23 08:00 BP 124/102 03/25/23 08:00 Pulse Ox 98 03/25/23 08:00 FiO2 Intake & Output 03/24/23 03/25/23 03/25/23 18:59 06:59 18:59 Intake Total 70 680 Output Total 1765 2250 Balance -1695 -1570 Weight 58 kg Intake: IV 70 80 0.9 @ KVO 70 80 Oral 600 Output: Urine 1765 2250 Other: Voiding Method Indwelling Catheter # Voids 1 - Exam No acute distress. Dressing clean, dry, intact. dressing changed. Rersidual limb clean and dry, no erythema, no drainage. - Labs CBC & Chem 7: 03/25/23 03:46 03/25/23 03:46 Labs: Abnormal Lab Results - Last 24 Hours (Table) 03/24/23 03/24/23 03/24/23 Range/Units 11:56 16:21 20:41 Hgb (11.4-16.0) gm/dL MCHC (31.0-37.0) g/dL RDW (11.5-15.5) % Sodium (137-145) mmol/L Carbon Dioxide (22-30) mmol/L Creatinine (0.52-1.04) mg/dL Glucose (74-99) mg/dL POC Glucose (mg/dL) 142 H 161 H 151 H (70-110) mg/dL Total Protein (6.3-8.2) g/dL Albumin (3.5-5.0) g/dL 03/25/23 03/25/23 03/25/23 Range/Units 03:46 03:46 06:34 Hgb 10.6 L (11.4-16.0) gm/dL MCHC 30.6 L (31.0-37.0) g/dL RDW 21.4 H (11.5-15.5) % Sodium 136 L (137-145) mmol/L Carbon Dioxide 32 H (22-30) mmol/L Creatinine 0.44 L (0.52-1.04) mg/dL Glucose 101 H (74-99) mg/dL POC Glucose (mg/dL) 120 H (70-110) mg/dL Total Protein 5.8 L (6.3-8.2) g/dL Albumin 3.2 L (3.5-5.0) g/dL Assessment and Plan Assessment: Status post left below-knee amputation acute on chronic limb ischemia Plan: Continue dressing,Consult comfort for a rigid dressing and stump pantograph transferrer, discussed iwth prosthetic team. Discharge planning. Patient may benefit from Xarelto 2.5mg
--- NOTE | 2023-03-25 10:29 | P.CONS ---
History of Present Illness - Reason for Consult Consult date: 03/25/23 Rehab evaluation/ recommendations - Chief Complaint new left BKA - History of Present Illness Mrs Anitha Maier is a 68 year old female who lives with her in a single story mobile home with 4-5 steps to enter. Prior to admission, patient was independent with mobility and ADLs without an assistive device. She has good support from her . Patient presented to [facility] ER on 03/20/23 for complaints of left lower extremity pain. In ED, she was found to have a cool left leg. Vascular surgery, Dr Field, notified. CT scan of the left leg with no obvious area of embolic occlusion, but difficult visualization of the tibial vessels. She was initiated on a heparin drip. Patient's foot pain started to improve, but still had pain primarily in the second toe. She admit to intermittent pain similar in nature since September. She is continuing to have evaluations by rheumatology. She is continuing with care of her right hand for her reynauds. She states that 1 month ago she was initiated on high-dose steroids, presumed PMR, which seemed to help some of her upper extremity and neck concerns. She states she is currently on the 30 mg dose down from 40. Patient went for left leg angiogram on 03/21 and 03/22 with difficulty performing due to occlusion. Patient was diagnosed with acute on chronic left limb ischemia and a left BKA was recommended. Patient went for her BKA with Dr Field on 03/23/23. She has had some post op pain, treated with GOLF CLUB MANAGER Morphine, Gabapentin and [place]. PM&R consulted for rehab recommendations. Patient was seen by therapy on 03/24/23; needing mod assist with transfers using RW, min assist with bed mobility and gait 3 feet hopping using RW, min assist with bathing, mod assist with LB dressing and toileting. 03/25/23 Review of Systems negative unless documented in HPI Past Medical History Past Medical History: Cancer, Diabetes Mellitus, Hypertension, Mitral Valve Prolapse (MVP) Additional Past Medical History / Comment(s): right breast cancer (2001- mastectomy with chemo).Reynad's syndrome. fibromyalgia, possible polymyalgia rheumatica History of Any Multi-Drug Resistant Organisms: None Reported Past Surgical History: Breast Surgery Additional Past Surgical History / Comment(s): right mastectomy, colonoscopy Past Anesthesia/Blood Transfusion Reactions: No Reported Reaction Past Psychological History: No Psychological Hx Reported Smoking Status: Current every day smoker Past Alcohol Use History: Rare Additional Past Alcohol Use History / Comment(s): smokes up to 1/2 ppd., started smoking age 17 Past Drug Use History: None Reported - Past Family History Father Family Medical History: Cancer Additional Family Medical History / Comment(s): prostate cancer Sister(s) Family Medical History: Cancer Additional Family Medical History / Comment(s): breast cancer Medications and Allergies Home Medications Medication Instructions Recorded Confirmed Type Ascorbic Acid [Vitamin C] 500 mg PO DAILY 06/16/22 03/21/23 History Cholecalciferol [Vitamin D3 (25 50 mcg PO DAILY 06/16/22 03/21/23 History Mcg = 1000 Iu)] [place]-3/Dha/Epa/Fish Oil [Fish Oil 1 cap PO DAILY 06/16/22 03/21/23 History 1,000 mg Softgel] Cyanocobalamin [Vitamin B-12] 1,000 mcg PO DAILY 11/19/22 03/21/23 History Calcium Carbonate [Calcium] 600 mg PO DAILY 03/21/23 03/21/23 History RX: predniSONE 30 mg PO HS 03/21/23 03/21/23 History Repaglinide [Prandin] 0.5 mg PO AC-BID 03/21/23 03/21/23 History lisinopriL [Zestril] 10 mg PO HS 03/21/23 03/21/23 History Allergies Allergy/AdvReac Type Severity Reaction Status Date / Time No Known Allergies Allergy Verified 03/21/23 07:12 Physical Exam Vitals: Vital Signs Temp Pulse Pulse Resp BP BP Pulse Ox 03/24/23 12:00 98.5 F 98 15 108/89 91 L 03/24/23 11:45 105 H 21 126/66 89 L 03/24/23 11:30 15 124/83 89 L 03/24/23 11:15 12 124/78 91 L 03/24/23 11:00 84 12 153/83 86 L 03/24/23 10:45 87 17 149/83 89 L 03/24/23 10:30 101 H 13 151/96 91 L 03/24/23 10:15 118 H 65 H 168/87 92 L 03/24/23 10:00 15 166/113 93 L 03/24/23 09:45 9 L 155/92 95 03/24/23 09:30 94 15 156/92 95 03/24/23 09:15 101 H 36 H 130/102 92 L 03/24/23 09:00 109 H 23 140/78 93 L 03/24/23 08:45 92 20 156/65 94 L 03/24/23 08:30 88 29 H 157/77 96 03/24/23 08:15 85 20 174/95 95 03/24/23 08:00 85 15 161/92 96 03/24/23 07:45 91 28 H 153/85 94 L 03/24/23 07:30 100 16 140/83 96 03/24/23 07:15 98.3 F 92 19 135/75 96 03/24/23 07:00 79 15 159/72 98 03/24/23 06:45 75 10 L 149/74 97 03/24/23 06:30 19 152/74 97 03/24/23 06:15 73 11 L 145/71 96 03/24/23 06:00 69 10 L 154/79 96 03/24/23 05:45 80 11 L 162/61 96 03/24/23 05:30 71 9 L 158/72 97 03/24/23 05:15 75 9 L 166/69 97 03/24/23 05:00 73 15 149/69 96 03/24/23 04:45 75 9 L 168/82 96 03/24/23 04:30 73 10 L 166/78 97 03/24/23 04:15 80 15 151/82 97 03/24/23 04:00 98.2 F 92 28 H 164/76 95 03/24/23 03:45 90 39 H 163/86 97 03/24/23 03:30 80 10 L 179/96 97 03/24/23 03:15 92 14 164/97 98 03/24/23 03:00 78 14 150/65 97 03/24/23 02:45 84 36 H 145/75 94 L 03/24/23 02:30 71 10 L 153/81 98 03/24/23 02:15 99 34 H 143/76 98 03/24/23 02:00 76 14 170/72 97 03/24/23 01:45 68 9 L 172/82 98 03/24/23 01:30 94 20 148/72 97 03/24/23 01:15 73 18 144/67 96 03/24/23 01:00 78 18 144/67 92 L 03/24/23 00:45 86 26 H 143/69 96 03/24/23 00:30 89 12 158/120 96 03/24/23 00:15 95 17 145/89 96 03/24/23 00:02 90 14 145/89 96 03/24/23 00:00 98.4 F 93 18 153/74 95 03/23/23 23:45 96 26 H 147/96 97 03/23/23 23:30 84 19 157/73 98 03/23/23 23:15 82 12 159/81 97 03/23/23 23:00 86 18 145/71 96 03/23/23 22:45 75 6 L 176/75 94 L 03/23/23 22:30 90 19 138/116 94 L 03/23/23 22:15 98 16 177/84 97 03/23/23 22:00 88 9 L 183/88 96 03/23/23 21:45 86 12 135/77 97 03/23/23 21:33 78 9 L 96 03/23/23 21:15 97.5 F L 88 22 169/84 97 03/23/23 21:00 90 16 163/70 99 03/23/23 20:42 87 16 173/71 99 03/23/23 20:28 103 H 16 175/80 95 03/23/23 20:15 99 16 182/81 99 03/23/23 20:00 95 16 194/88 100 03/23/23 19:45 93 16 199/90 98 03/23/23 19:30 88 16 186/74 98 03/23/23 19:15 91 16 188/91 98 03/23/23 19:00 87 16 165/72 100 03/23/23 18:43 97.4 F L 87 16 161/70 98 03/23/23 17:30 152/69 03/23/23 17:00 80 37 H 132/71 97 03/23/23 16:30 75 22 145/88 98 Intake and Output 03/24/23 03/24/23 03/24/23 06:59 14:59 22:59 Intake Total 1160 70 Output Total 2230 1765 Balance -1070 -8274 Intake: IV 80 70 0.9 @ KVO 80 70 Oral 1080 Output: Urine 2229 1764 Other: Voiding Method Indwelling Catheter # Voids 1 Weight 58 kg General: WDWN, female, NAD left knee imobilizer on Head: Normocephalic, atraumatic. Eyes: Symmetric Ears: Symmetric. Hearing within normal limits. Mouth: Clear. Neck: Supple. Cardiac: Regular rate and rhythm. Calves supple, non tender, no edema in RLE Lungs: Breathing comfortably on RA. Chest symmetric. Abdomen: Soft, nontender. +BSx4 Extremities: Arthritic changes consistent with age.. Left BKA, Neurological: Alert and oriented x 4 Speech is clear and fluent without paraphasic errors Cranial nerves: CN II-XII: intact. Sensation: decreased in a stocking distribution Musculoskeletal: ROM WFL EXCEPT: left knee not tested MMT UE Sh Abd EE EF FABD WE HG Right 5 5 5 5 5 5 Left 5 5 5 5 5 5 MMT LE HF KE DF EHL Right 5 5 5 5 Left 4+ 4+ NT NT Reflexes Biceps Triceps Brachioradialis Patella Achilles Babinski Hoffmans Right 2 2 2 1 0 down neg Left 2 2 2 NT NT NT neg Skin: Skin intact where visible to head, neck, and bilateral upper and lower extremities EXCEPT: LLE I did not undress wound Psych: Calm, cooperative Results CBC & Chem 7: 03/25/23 03:46 03/25/23 03:46 Labs: Abnormal Lab Results - Last 24 Hours (Table) 03/23/23 03/24/23 Range/Units 22:33 11:56 POC Glucose (mg/dL) 116 H 142 H (70-110) mg/dL Assessment and Plan Assessment: # Acute on chronic left lower limb ischemia s/p BKA with Dr Field on 03/23/23 -fall precautions -Hgb 11.0 # Pain secondary to above # Impaired gait and ADLs secondary to above # reynauds disease with wounds # Recent High-dose steroid use # Mild renal injury # Diabetes mellitus type 2 # Bowel/ Bladder: Nursing to monitor and report concerns if any. # Diet-carb consistent diet # Skin/wound: Skin/Wound care to follow as needed # Pain Management -Morphine GOLF CLUB MANAGER, Gabapentin 300 mg TID, [place] 5/325 mg Q 4 prn # DVT Prophylaxis: Defer to vascular sx management. -pneumatic compression devices # Comorbidities: Vitamin D deficiency, Hypertension # Your medical dx and mgt Goals: Modified Independent mobility and ADLS both basic and advanced; increased functional mobility/strength; increased balance, safety, endurance. Improvement in medical issues through your care. Barriers: new amputation, stairs at home, pain Discharge recommendation: Recommending IPR, will need insurance approval. Patient will need to be transitioned off of GOLF CLUB MANAGER pump to oral pain medications for admission to IPR. Patient has good support from her , is motivated and able to tolerate the intensity of IPR. Patient seen and examined by Dr. Medina, consult remotely prepped by [employer] PA-C
[2023-03-25 11:11] LABS: Glucose,Whole Blood 154 mg/dL (70-110)
--- NOTE | 2023-03-25 14:40 | P.PN ---
Subjective Progress Note Date: 03/25/23 68-year-old female presents emergency department for concerns of ischemic limb. She went to the urgent care and was found to have decreased dorsalis pedis pulse. She told to come to the emergency department. Over the last 3 days she's been having worsening pain. States that her pain was significantly elevated yesterday. Patient has had similar issues intermittently since September however over the last couple days as escalated. Patient noticed some mottling of the left foot. - Patient had CTA done in ED which showed patent left iliac, femoral and popliteal vessels; takeoff off anterior tibial peroneal trunk could be visualized without any further visualization below that level; patient was placed on IV heparin infusion -- Patient was evaluated by vascular surgery and is willing to be taken to vascular lab for angiogram and possible intervention Patient taken to vascular lab again this morning for left lower extremity angiogram via existing catheter -- Patient discussed with vascular surgery; further plan of care pending clinical course 03/23. Patient seen and examined. Currently nothing by mouth, going for surgery today. 03/24 patient seen and examined. Patient is status post left BKA. Currently on PROFESSOR OF MECHANICAL ENGINEERING. Still has phantom pains 03/25. Patient seen and examined in no acute issues overnight. REVIEW OF SYSTEMS: CONSTITUTIONAL: No fever, no malaise,. CARDIOVASCULAR: No chest pain, no palpitations, no syncope. PULMONARY: No shortness of breath, no cough, GASTROINTESTINAL: No diarrhea, no nausea, no vomiting, no abdominal pain. NEUROLOGICAL: No headaches, no weakness, PHYSICAL EXAMINATION: GENERAL: The patient is alert and oriented x3, not in any acute distress. Well developed, well nourished. HEENT: Pupils are round and equally reacting to light. EOMI. No scleral icterus. No conjunctival pallor. Normocephalic, atraumatic. No pharyngeal erythema. No thyromegaly. CARDIOVASCULAR: S1 and S2 present. No murmurs, rubs, or gallops. PULMONARY: Chest is clear to auscultation, no wheezing or crackles. ABDOMEN: Soft, nontender, nondistended, normoactive bowel sounds. No palpable organomegaly. MUSCULOSKELETAL: No joint swelling or deformity. Left BKA EXTREMITIES: No cyanosis, clubbing, or pedal edema. NEUROLOGICAL: Gross neurological examination did not reveal any focal deficits. SKIN: No rashes. Assessment and plan Acute left limb ischemia Monitor vital signs Monitor CBC Continue neurovascular checks Status post left BKA Continue wound care Vascular surgery on board, started her on Xarelto 2.5 mg twice a day PT and OT consulted Mild leukocytosis; likely reactive; no signs of infection Mild renal injury; BUN slightly elevated at 27; slow IV hydration; monitor strict KWAKU's and renal function; avoid nephrotoxins and hypotension Hypertension; lisinopril 10 mg daily Diabetes mellitus type 2; patient takes Prandin 0.5 mg twice a day; we will hold off on oral hypoglycemics and monitor Accu-Cheks before meals and at bedtime with insulin sliding scale 6. Vitamin D deficiency; continue with vitamin D3 2000 units by mouth daily; calcium carbonate 600 mg daily Objective - Vital Signs Vital signs: Vital Signs Temp 98.5 F 03/25/23 12:00 Pulse 95 03/25/23 12:00 Resp 16 03/25/23 12:00 BP 134/53 03/25/23 12:00 Pulse Ox 98 03/25/23 12:00 FiO2 Intake & Output 03/24/23 03/25/23 03/25/23 18:59 06:59 18:59 Intake Total 70 680 Output Total 1765 2250 Balance -1695 -1570 Weight 58 kg Intake: IV 70 80 0.9 @ KVO 70 80 Oral 600 Output: Urine 1765 2250 Other: Voiding Method Indwelling Catheter # Voids 1 - Labs CBC & Chem 7: 03/25/23 03:46 03/25/23 03:46 Labs: Abnormal Lab Results - Last 24 Hours (Table) 03/24/23 03/24/23 03/25/23 Range/Units 16:21 20:41 03:46 Hgb 10.6 L (11.4-16.0) gm/dL MCHC 30.6 L (31.0-37.0) g/dL RDW 21.4 H (11.5-15.5) % Sodium (137-145) mmol/L Carbon Dioxide (22-30) mmol/L Creatinine (0.52-1.04) mg/dL Glucose (74-99) mg/dL POC Glucose (mg/dL) 161 H 151 H (70-110) mg/dL Total Protein (6.3-8.2) g/dL Albumin (3.5-5.0) g/dL 03/25/23 03/25/23 03/25/23 Range/Units 03:46 06:34 11:09 Hgb (11.4-16.0) gm/dL MCHC (31.0-37.0) g/dL RDW (11.5-15.5) % Sodium 136 L (137-145) mmol/L Carbon Dioxide 32 H (22-30) mmol/L Creatinine 0.44 L (0.52-1.04) mg/dL Glucose 101 H (74-99) mg/dL POC Glucose (mg/dL) 120 H 154 H (70-110) mg/dL Total Protein 5.8 L (6.3-8.2) g/dL Albumin 3.2 L (3.5-5.0) g/dL
[2023-03-25] MEDS: MORPHINE SULFATE 4 MG/ML SYRINGE IVP PRN ×4 (15:10→21:24)
[2023-03-25 16:32] LABS: Glucose,Whole Blood 119 mg/dL (70-110)
[2023-03-25] MEDS: lisinopriL 10 MG TAB PO SCH (19:55)
[2023-03-25] MEDS: RIVAROXABAN 2.5 MG TABLET PO SCH (19:55)
[2023-03-25 20:31] LABS: Glucose,Whole Blood 151 mg/dL (70-110)
[2023-03-26] MEDS: HYDROcodone/APAP 5-325MG 1 EACH TAB PO PRN ×3 (02:35→11:30)
[2023-03-26] MEDS: MORPHINE SULFATE 4 MG/ML SYRINGE IVP PRN ×5 (04:50→13:59)
[2023-03-26 06:48] LABS: Glucose,Whole Blood 131 mg/dL (70-110)
[2023-03-26] MEDS: INSULIN ASPART (NovoLOG) 100 UNIT/ML VIAL SQ SCH ×2 (06:50→14:03)
[2023-03-26] MEDS: GABAPENTIN 300 MG CAP PO SCH (08:21)
[2023-03-26] MEDS: RIVAROXABAN 2.5 MG TABLET PO SCH (08:21)
[2023-03-26] MEDS: NITROGLYCERIN 0.4MG/HR PATCH TRANSDERM SCH (08:22)
[2023-03-26 11:26] LABS: Glucose,Whole Blood 167 mg/dL (70-110)
--- NOTE | 2023-03-26 11:49 | P.PN ---
Subjective Progress Note Date: 03/26/23 Patient seen and examined. No complaints. Pain is relatively controlled with oral and IV regimen Objective - Vital Signs Vital signs: Vital Signs Temp 98.3 F 03/26/23 08:00 Pulse 80 03/26/23 08:00 Resp 22 03/26/23 08:00 BP 106/56 03/26/23 08:00 Pulse Ox 98 03/26/23 08:00 FiO2 Intake & Output 03/25/23 03/26/23 03/26/23 18:59 06:59 18:59 Intake Total 1300 450 Output Total 1650 900 0 Balance -350 -900 450 Weight 55 kg Intake: Oral 1300 450 Output: Urine 1650 900 0 Other: Voiding Method Toilet Bedside Commode - Exam No acute distress. Dressing clean, dry, intact. - Labs CBC & Chem 7: 03/25/23 03:46 03/25/23 03:46 Labs: Abnormal Lab Results - Last 24 Hours (Table) 03/25/23 03/25/23 03/26/23 Range/Units 16:31 20:29 06:46 POC Glucose (mg/dL) 119 H 151 H 131 H (70-110) mg/dL 03/26/23 Range/Units 11:25 POC Glucose (mg/dL) 167 H (70-110) mg/dL Assessment and Plan Assessment: Status post left below-knee amputation acute on chronic limb ischemia Plan: Continue dressing,Consult comfort for a rigid dressing and stump sculpture instructor, prosthetics team plans to see on Thursday either here or if patient is still here versus in the IPR. Discharge planning. Continue medications. Discussed with patient try to wean from IV pain medication. Okay for discharge when able and accepted.
[2023-03-26 12:53] VITALS: BP 150/80; PULSE 93; RESP 16; TEMP 98.2
--- NOTE | 2023-03-26 12:54 | P.DS ---
Providers Date of admission: 03/20/23 23:45 Expected date of discharge: 03/26/23 Attending physician: Corrine Choi Consults: 03/20/23 23:37 Consult Physician Routine Consulting Provider: Loree Field Consult Reason/Comments: ischemic limb Do you want consulting provider notified?: Already Contacted 03/24/23 13:14 Consult Physician Routine Consulting Provider: Darrell Medina Consult Reason/Comments: Rehab Do you want consulting provider notified?: Yes Primary care physician: Shaniqua Flor [facility] Course: Discharge diagnoses; Acute left limb ischemia Status post left BKA Continue wound care Vascular surgery on board, started her on Xarelto 2.5 mg twice a day Discharge to acute rehab Mild leukocytosis; likely reactive; no signs of infection Mild renal injury; resolved Hypertension; lisinopril 10 mg daily Diabetes mellitus type 2; continue home meds Vitamin D deficiency; continue with vitamin D3 2000 units by mouth daily; calcium carbonate 600 mg daily Hospital course; 68-year-old female presents emergency department for concerns of ischemic limb. She went to the urgent care and was found to have decreased dorsalis pedis pulse. She told to come to the emergency department. Over the last 3 days she's been having worsening pain. States that her pain was significantly elevated yesterday. Patient has had similar issues intermittently since September however over the last couple days as escalated. Patient noticed some mottling of the left foot. - Patient had CTA done in ED which showed patent left iliac, femoral and popliteal vessels; takeoff off anterior tibial peroneal trunk could be visualized without any further visualization below that level; patient was placed on IV heparin infusion -- Patient was evaluated by vascular surgery and is willing to be taken to vascular lab for angiogram and possible intervention Patient taken to vascular lab again this morning for left lower extremity angiogram via existing catheter -- Patient discussed with vascular surgery; further plan of care pending clinical course 03/23. Patient seen and examined. Currently nothing by mouth, going for surgery today. 03/24 patient seen and examined. Patient is status post left BKA. Currently on BEAD WIRE TAPER. Still has phantom pains 03/25. Patient seen and examined in no acute issues overnight. 03/26. Patient seen and examined. Being discharged to acute rehab today PHYSICAL EXAMINATION: GENERAL: The patient is alert and oriented x3, not in any acute distress. Well developed, well nourished. HEENT: Pupils are round and equally reacting to light. EOMI. No scleral icterus. No conjunctival pallor. Normocephalic, atraumatic. No pharyngeal erythema. No thyromegaly. CARDIOVASCULAR: S1 and S2 present. No murmurs, rubs, or gallops. PULMONARY: Chest is clear to auscultation, no wheezing or crackles. ABDOMEN: Soft, nontender, nondistended, normoactive bowel sounds. No palpable organomegaly. MUSCULOSKELETAL: No joint swelling or deformity. Left BKA EXTREMITIES: No cyanosis, clubbing, or pedal edema. NEUROLOGICAL: Gross neurological examination did not reveal any focal deficits. SKIN: No rashes. Patient Condition at Discharge: Good Plan - Discharge Summary Discharge Rx Participant: No New Discharge Prescriptions: New Gabapentin [Neurontin] 300 mg PO TID cap Rivaroxaban [Xarelto] 2.5 mg PO BID tab HYDROcodone/APAP 5-325MG [[place] 5-325] 1 each PO Q4HR PRN tab PRN Reason: Pain Continue Ascorbic Acid [Vitamin C] 500 mg PO DAILY [place]-3/Dha/Epa/Fish Oil [Fish Oil 1,000 mg Softgel] 1 cap PO DAILY Cyanocobalamin [Vitamin B-12] 1,000 mcg PO DAILY lisinopriL [Zestril] 10 mg PO HS Calcium Carbonate [Calcium] 600 mg PO DAILY Cholecalciferol [Vitamin D3 (25 Mcg = 1000 Iu)] 50 mcg PO DAILY predniSONE 30 mg PO HS Repaglinide [Prandin] 0.5 mg PO AC-BID Discharge Medication List Ascorbic Acid [Vitamin C] 500 mg PO DAILY 06/16/22 [History] Cholecalciferol [Vitamin D3 (25 Mcg = 1000 Iu)] 50 mcg PO DAILY 06/16/22 [History] [place]-3/Dha/Epa/Fish Oil [Fish Oil 1,000 mg Softgel] 1 cap PO DAILY 06/16/22 [History] Cyanocobalamin [Vitamin B-12] 1,000 mcg PO DAILY 11/19/22 [History] Calcium Carbonate [Calcium] 600 mg PO DAILY 03/21/23 [History] Repaglinide [Prandin] 0.5 mg PO AC-BID 03/21/23 [History] lisinopriL [Zestril] 10 mg PO HS 03/21/23 [History] predniSONE 30 mg PO HS 03/21/23 [History] Gabapentin [Neurontin] 300 mg PO TID cap 03/26/23 [Rx] HYDROcodone/APAP 5-325MG [[place] 5-325] 1 each PO Q4HR PRN tab 03/26/23 [Rx] Rivaroxaban [Xarelto] 2.5 mg PO BID tab 03/26/23 [Rx] Follow up Appointment(s)/Referral(s): Shaniqua Ray MD [Primary Care Provider] - 1-2 days Loree Field DO [STAFF PHYSICIAN] - 1 Week Discharge Disposition: TRANSFER TO SNF/ECF
--- NOTE | 2023-03-27 12:56 | CDI ---
Documentation Clarification Form Date: 03/27/23 From: Melinda Collier Admit Date: 03/20/2023 11:45:00 PM Patient Name: Anitha Maier Visit Number: [id number] Discharge Date: 03/26/2023 03:30:00 PM ATTENTION: The Clinical Documentation Specialists (CDI) and [facility] Coding Staff appreciate your assistance in clarifying documentation. Please respond to the clarification below the line at the bottom and electronically sign. The CDI & [facility] Coding staff will review the response and follow-up if needed. Please note: Queries are made part of the Legal Health Record. If you have any questions, please contact the author of this message via ITS. Dr. Loree Field, Mild renal injury is documented in H&P, PNs & DS, which may lack sufficient clinical evidence/support in the medical record. Additional clarification is requested. History/Risk Factors: Clinical Indicators: BUN slightly elevated at 27. CR 0.59 on admission. Treatment: Slow IV hydration, monitor strict INOs and renal function Please clarify if acute renal injury is a valid diagnosis? [ ] Yes, [insert diagnosis] is present as evidence by (additional clinical support): [ x ] No, not sufficient for diagnosis [ ] Other (please specify diagnosis) [ ] Unable to determine MTDD
== END 2023-03-26 15:30 | DRG 241 ==
LOC: EC 17:48 → 4SSUR 23:45 → 3SCARD 03-21 08:26 → 2SICU 03-21 10:19
PROVIDERS: ADMIT Hospitalist; ATTEND Hospitalist
PROC: B41G1ZZ Fluoroscopy of Left Lower Extremity Arteries using Low Osmolar Contrast (ICD-10-PCS; 2023-03-21 08:56)
PROC: 3E03317 Introduction of Other Thrombolytic into Peripheral Vein, Percutaneous Approach (ICD-10-PCS; 2023-03-21 08:56)
PROC: B41G1ZZ Fluoroscopy of Left Lower Extremity Arteries using Low Osmolar Contrast (ICD-10-PCS; 2023-03-22 07:42)
PROC: 3E03317 Introduction of Other Thrombolytic into Peripheral Vein, Percutaneous Approach (ICD-10-PCS; 2023-03-22 07:42)
PROC: 047S3ZZ Dilation of Left Posterior Tibial Artery, Percutaneous Approach (ICD-10-PCS; 2023-03-22 07:42)
PROC: B41F1ZZ Fluoroscopy of Right Lower Extremity Arteries using Low Osmolar Contrast (ICD-10-PCS; 2023-03-22 07:42)
PROC: 0Y6J0Z3 Detachment at Left Lower Leg, Low, Open Approach (ICD-10-PCS; principal; 2023-03-23 10:05)
DX: I70.222 Atherosclerosis of native arteries of extremities with rest pain, left leg (principal); G54.6 Phantom limb syndrome with pain; E11.9 Type 2 diabetes mellitus without complications; I73.00 Raynaud's syndrome without gangrene; M79.7 Fibromyalgia; I34.1 Nonrheumatic mitral (valve) prolapse; I10 Essential (primary) hypertension; E55.9 Vitamin D deficiency, unspecified; R26.9 Unspecified abnormalities of gait and mobility; F17.210 Nicotine dependence, cigarettes, uncomplicated; Z71.6 Tobacco abuse counseling; Z79.899 Other long term (current) drug therapy; Z85.3 Personal history of malignant neoplasm of breast; Z74.1 Need for assistance with personal care; Z92.21 Personal history of antineoplastic chemotherapy
CPT/HCPCS: 36247; 36415; 37211; 37213; 37228; 75710; 76937; 80048; 80053; 82565; 83036; 83605; 84520; 85025; 85027; 85384; 85610; 85730; 86850; 86900; 86901; 96365; 96366; 96375; 96376; 99291; 99406

== ENCOUNTER 2023-05-01 09:06 | Day surgery (SDC) | payer MEDICARE ==
[~2023-05-01 09:06] MED LIST changes: -LACTATED RINGERS 1,000 ML IV SCH; -LIDOCAINE 1% (10MG/ML) FOR IV START INTRADERMA PRN; +Pre Op ABX Message 1 EACH MISC MISCELLANE ONE
[2023-05-01] MEDS ORDERED: LIDOCAINE 1% (10MG/ML) FOR IV START INTRADERMA PRN (09:32)
[2023-05-01] MEDS ORDERED: LACTATED RINGERS 1,000 ML IV SCH (09:32)
[2023-05-01] MEDS ORDERED: ONDANSETRON 4 MG/2 ML VIAL IVP ONE (09:32)
[2023-05-01] MEDS ORDERED: HYDROmorphone 0.5 MG/0.5 ML SYRINGE IVP PRN (09:32)
[2023-05-01] MEDS ORDERED: methylPREDNISolone SOD SUCCI 125 MG/2 ML VIAL IVP ONE (10:27)
[2023-05-01 10:30] LABS: Anisocytosis Slight; Basophils % (A) 0 %; Eosinophils % (A) 0 %; HCT 37.9 % (34.0-46.0); HGB 12.5 gm/dL (11.4-16.0); Lymphocytes % (A) 39 %; MCH 29.3 pg (25.0-35.0); MCV 88.8 fL (80.0-100.0); Mean Platelet Volume 7.5; Monocytes # (A) 0.7 k/uL (0-1.0); Monocytes % (A) 6 %; Neutrophils # (A) 5.4 k/uL (1.3-7.7); Neutrophils % (A) 53 %; Platelet Count 172 k/uL (150-450); RBC 4.27 m/uL (3.80-5.40); RDW 17.4 % (11.5-15.5); WBC 10.3 k/uL (3.8-10.6)
[2023-05-01 10:31] LABS: Glucose,Whole Blood 84 mg/dL (70-110)
[2023-05-01 10:36] LABS: Potassium 3.7 mmol/L (3.5-5.1)
--- NOTE | 2023-05-01 13:15 | P.GSHP ---
History of Present Illness H&P Date: 05/01/23 Patient is a 68-year-old female who presents underwent a left lower extremity below-knee amputation for acute on chronic limb ischemia with inability to salvage. She has been recovering well and her pain is improved however she has continued areas of dehiscence necrosis of her incision therefore she is recommended to undergo debridement and wound VAC placement. 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 History of Any Multi-Drug Resistant Organisms: None Reported Past Surgical History: Breast Surgery Additional Past Surgical History / Comment(s): L leg angiogram, L BKA, right mastectomy, colonoscopy Past Anesthesia/Blood Transfusion Reactions: No Reported Reaction Additional Past Anesthesia/Blood Transfusion Reaction / Comment(s): Pt has never received blood. Past Psychological History: No Psychological Hx Reported Additional Psychological History / Comment(s): Pt resides with spouse. She walks with walker and has wheelchair. Smoking Status: Former smoker Past Alcohol Use History: Rare Additional Past Alcohol Use History / Comment(s): Pt quit smoking 03/2023, star yumi smoking age 17 Past Drug Use History: None Reported - Past Family History Father Family Medical History: Cancer Additional Family Medical History / Comment(s): prostate cancer Sister(s) Family Medical History: Cancer Additional Family Medical History / Comment(s): breast cancer Medications and Allergies Home Medications Medication Instructions Recorded Confirmed Type Ascorbic Acid [Vitamin C] 500 mg PO QAM 06/16/22 04/27/23 History Cholecalciferol [Vitamin D3 (25 50 mcg PO QAM 06/16/22 04/27/23 History Mcg = 1000 Iu)] [place]-3/Dha/Epa/Fish Oil [Fish Oil 1 cap PO QAM 06/16/22 04/27/23 History 1,000 mg Softgel] Cyanocobalamin [Vitamin B-12] 1,000 mcg PO QAM 11/19/22 04/27/23 History Calcium Carbonate [Calcium] 600 mg PO QAM 03/21/23 04/27/23 History Repaglinide [Prandin] 0.5 mg PO AC-BID 03/21/23 04/27/23 History lisinopriL [Zestril] 10 mg PO HS 03/21/23 04/27/23 History predniSONE 40 mg PO HS 03/21/23 04/27/23 History Gabapentin [Neurontin] 300 mg PO TID cap 03/26/23 04/27/23 Rx Rivaroxaban [Xarelto] 2.5 mg PO BID tab 03/26/23 04/27/23 Rx HYDROcodone/APAP 10-325MG [[place] 1 tab PO Q6H PRN 04/27/23 04/27/23 History 10-325] Serg Packet 1 packet PO BID 04/27/23 04/27/23 History Allergies Allergy/AdvReac Type Severity Reaction Status Date / Time No Known Allergies Allergy Verified 04/27/23 10:45 Surgical - Exam Vital Signs Temp Pulse Resp BP Pulse Ox 98.9 F 61 20 161/70 95 05/01/23 09:51 05/01/23 09:51 05/01/23 09:51 05/01/23 09:51 05/01/23 09:51 Gen a pleasant cooperative female in no acute distress. Heart is regular. Lungs are clear. Abdomen soft. Left lower extremity amputation site with areas of necrosis at the skin edge Results - Labs 05/01/23 10:15 05/01/23 10:15 Abnormal Lab Results - Last 24 Hours (Table) 05/01/23 Range/Units 10:15 RDW 17.4 H (11.5-15.5) % Diabetes panel 05/01/23 Range/Units 10:15 Sodium 137 (137-145) mmol/L Potassium 3.7 (3.5-5.1) mmol/L Chloride 105 (98-107) mmol/L Carbon Dioxide 24 (22-30) mmol/L Pituitary panel 05/01/23 Range/Units 10:15 Sodium 137 (137-145) mmol/L Potassium 3.7 (3.5-5.1) mmol/L Chloride 105 (98-107) mmol/L Carbon Dioxide 24 (22-30) mmol/L Adrenal panel 05/01/23 Range/Units 10:15 Sodium 137 (137-145) mmol/L Potassium 3.7 (3.5-5.1) mmol/L Chloride 105 (98-107) mmol/L Carbon Dioxide 24 (22-30) mmol/L Assessment and Plan Assessment: Nonhealing left below-knee amputation. Wound dehiscence peripheral arterial disease Plan: Will plan for a left lower extremity debridement with wound VAC placement. Risks and benefits discussed including but not limited to bleeding, infection and continued nonhealing. The patient seemingly understands and is willing to proceed.
[2023-05-01] MEDS ORDERED: PHENYLEPHRINE-0.9% NACL SYG 1,000 MCG/10 ML SYRINGE ONE (13:21)
[2023-05-01] MEDS ORDERED: MIDAZOLAM 2 MG/2 ML VIAL ONE (13:21)
[2023-05-01] MEDS ORDERED: PROPOFOL 10 MG/ML 20 ML VIAL IV ONE (13:21)
[2023-05-01] MEDS ORDERED: LIDOCAINE 2% INJ 20 MG/ML (2 ML VIAL) ONE (13:21)
[2023-05-01] MEDS ORDERED: fentaNYL (PF) 50 MCG/ML 2 ML AMP ONE (13:21)
[2023-05-01] MEDS ORDERED: SODIUM CHLORIDE 0.9% 50 ML with ceFAZolin 2,000 MG IV ONE ×2 (13:26)
[2023-05-01] MEDS ORDERED: SODIUM CHLORIDE 0.9% 100 ML BAG ONE (13:40)
[2023-05-01] MEDS ORDERED: ceFAZolin 1,000 MG VIAL ONE (13:40)
[2023-05-01 14:13] VITALS: TEMP 98
--- NOTE | 2023-05-01 14:14 | P.OP ---
Date of Procedure: 05/01/23 Description of Procedure: Preoperative diagnosis: Left lower extremity below-knee amputation wound nonhealing Postoperative diagnosis: Same Procedure: Sharp excisional debridement left below-knee amputation site to muscle measuring 16.2 x 2.7 x 0.3 cm Surgeon: Loree Field D.O. EBL: Less than 10 mL IV fluids: See records Urine output: Not measured Drains: Wound VAC Complications: None Condition: . stable Operative indication and findings: Patient is a 68 year old female with previous issues with acute on chronic limb ischemia and inability to salvage the lower extremity. Subsequent left below-knee amputation was performed. The patient has had no further pain however does have several areas of nonhealing and eschar to the incision site therefore a debridement with VAC placement was recommended. Procedure in detail: Patient is brought to the operative suite and placed in supine position. Left lower extremity is prepped and draped in usual sterile fashion. A preprocedure timeout was performed, all parties were in agreement. Using a scalpel, the eschar was excised from the periwound. This was removed because of his tissue with electrocautery. This is undoubtedly level of the muscle. The muscle itself appeared mildly boggy. There is then copiously irrigated. There is no evidence of.. Her hematoma. A wound VAC was cut to size and placed after appropriate dissection of the skin. It was set to suction of 1 25 mmHg with good seal. The patient was awakened from anesthesia and transferred to recovery in stable condition and tolerated the procedure well. Plan - Discharge Summary Discharge Rx Participant: No New Discharge Prescriptions: New HYDROcodone/APAP 10-325MG [[place] 10-325] 1 tab PO Q6HR PRN 3 Days #12 tab PRN Reason: Pain No Action Ascorbic Acid [Vitamin C] 500 mg PO QAM [place]-3/Dha/Epa/Fish Oil [Fish Oil 1,000 mg Softgel] 1 cap PO QAM Cyanocobalamin [Vitamin B-12] 1,000 mcg PO QAM lisinopriL [Zestril] 10 mg PO HS Calcium Carbonate [Calcium] 600 mg PO QAM Gabapentin [Neurontin] 300 mg PO TID cap Rivaroxaban [Xarelto] 2.5 mg PO BID tab Cholecalciferol [Vitamin D3 (25 Mcg = 1000 Iu)] 50 mcg PO QAM predniSONE 40 mg PO HS Repaglinide [Prandin] 0.5 mg PO AC-BID HYDROcodone/APAP 10-325MG [[place] 10-325] 1 tab PO Q6H PRN PRN Reason: Pain Serg Packet 1 packet PO BID Discharge Medication List Ascorbic Acid [Vitamin C] 500 mg PO QAM 06/16/22 [History] Cholecalciferol [Vitamin D3 (25 Mcg = 1000 Iu)] 50 mcg PO QAM 06/16/22 [History] [place]-3/Dha/Epa/Fish Oil [Fish Oil 1,000 mg Softgel] 1 cap PO QAM 06/16/22 [History] Cyanocobalamin [Vitamin B-12] 1,000 mcg PO QAM 11/19/22 [History] Calcium Carbonate [Calcium] 600 mg PO QAM 03/21/23 [History] Repaglinide [Prandin] 0.5 mg PO AC-BID 03/21/23 [History] lisinopriL [Zestril] 10 mg PO HS 03/21/23 [History] predniSONE 40 mg PO HS 03/21/23 [History] Gabapentin [Neurontin] 300 mg PO TID cap 03/26/23 [Rx] Rivaroxaban [Xarelto] 2.5 mg PO BID tab 03/26/23 [Rx] HYDROcodone/APAP 10-325MG [[place] 10-325] 1 tab PO Q6H PRN 04/27/23 [History] Serg Packet 1 packet PO BID 04/27/23 [History] HYDROcodone/APAP 10-325MG [[place] 10-325] 1 tab PO Q6HR PRN 3 Days #12 tab 05/01/23 [Rx] Follow up Appointment(s)/Referral(s): Loree Field DO [STAFF PHYSICIAN] - 10 Days Activity/Diet/Wound Care/Special Instructions: Wound VAC changed 3 times a week per home health care nursing. Wound VAC setting to 1 25 mmHg. Continuous suction. Make appointment with [facility]. No showering while VAC in place. Resume home medications including anticoagulation. Resume regular home activity including exercises. No restrictions. Discharge Disposition: HOME SELF-CARE
[2023-05-01 14:20] LABS: Glucose,Whole Blood 106 mg/dL (70-110)
[2023-05-01 14:56] VITALS: RESP 18
[2023-05-01] MEDS ORDERED: HYDROcodone/APAP 10-325MG 1 EACH TAB PO ONE (15:00)
[2023-05-01] MEDS ORDERED: HYDROcodone/APAP 10-325MG 1 EACH TAB ONE (15:01)
[2023-05-01 15:13] VITALS: PULSE 60
[2023-05-01 15:30] VITALS: BP 160/71
== END 2023-05-01 15:57 | disposition home or self-care (01) ==
LOC: OR 09:06
PROVIDERS: ATTEND Surgery
DX: T87.81 Dehiscence of amputation stump (principal); T81.30XA Disruption of wound, unspecified, initial encounter; I10 Essential (primary) hypertension; E78.5 Hyperlipidemia, unspecified; I34.1 Nonrheumatic mitral (valve) prolapse; J44.9 Chronic obstructive pulmonary disease, unspecified; E11.40 Type 2 diabetes mellitus with diabetic neuropathy, unspecified; M79.7 Fibromyalgia; Z87.891 Personal history of nicotine dependence; Z79.52 Long term (current) use of systemic steroids; Z79.899 Other long term (current) drug therapy; Z89.512 Acquired absence of left leg below knee; Z86.000 Personal history of in-situ neoplasm of breast; Z90.12 Acquired absence of left breast and nipple; Z79.01 Long term (current) use of anticoagulants; Z79.84 Long term (current) use of oral hypoglycemic drugs
CPT/HCPCS: 80051; 85025; 11043; 11046; J2250; J2930; J2405; J0690; J3010; J2704; J1170; J2001; J2371

== ENCOUNTER → 2023-06-23 | Outpatient (CLI) | payer MEDICARE ==
[2023-06-23 21:03] LABS: Iron 38 UG/DL (50-170)
[2023-06-23 21:38] LABS: Cardiolipin Ab IgG Interp Negative (Negative); Cardiolipin Ab IgM Interp Negative (Negative); Cardiolipin IgA Antibody 4.1 U/mL; Cardiolipin IgM Antibody 9.1 U/mL
[2023-06-24 13:59] LABS: APTT 39 Sec(s) (<43); Dilute Russell Viper Venom 43 Sec(s) (<44)
[2023-06-27 22:37] LABS: LD Isoenzymes 1 32 % (18-32); LD Isoenzymes 2 36 % (29-42); LD Isoenzymes 3 19 % (14-30); LD Isoenzymes 4 7 % (6-13); LD Isoenzymes 5 6 % (5-18); Lactacte Dehydrogenase(LD) ISO 180 U/L (120-250)
== END | disposition home or self-care (01) ==
LOC: LABWHC1 13:25
PROVIDERS: ATTEND Internal Medicine Hematology & Oncology
DX: D64.9 Anemia, unspecified (principal)
CPT/HCPCS: 36415; 82525; 82607; 82728; 83540; 83625; 84443; 85613; 85730; 86147

== ENCOUNTER → 2023-08-12 | Outpatient (CLI) | payer MEDICARE ==
--- NOTE | 2023-08-13 11:03 | MM ---
Reason for Exam: Screening (asymptomatic). Last mammogram was performed 1 year(s) and 2 month(s) ago. Patient History: Menarche at age 15. First Full-Term at age 27. Postmenopausal. Patient has history of breast feeding. Breast cancer, right, age 47. Previous chemotherapy at age 47. 2001, Reduction on the Left side. 2001, Mastectomy on the Right side. 2001, Implant on the right side. Maternal cousin had breast cancer, age 40. Sister had breast cancer, age 40. Prior Study Comparison: 03/07/2020 Left Diagnostic Mammogram, [facility]. 05/22/2021 Left Screening Mammogram, [facility]. 06/02/2022 Left MG 3D scr dana unilateral w/cad., [facility]. Tissue Density: Left: There are scattered fibroglandular densities. Findings: Analyzed By CAD. There is no suspicious group of microcalcifications or new suspicious mass in either breast. Overall Assessment: Benign, BI-RAD 2 Management: Screening Mammogram of both breasts in 1 year. . Patient should continue monthly self-breast exams. A clinical breast exam by your physician is recommended on an annual basis. This exam should not preclude additional follow-up of suspicious palpable abnormalities. Note on Mercedes scores and lifetime risk: 1. A Mercedes score greater than 3% is considered moderate risk. If this is the case, consider specialist referral to assess eligibility for a risk reducing agent. 2. If overall lifetime risk for the development of breast cancer is 20% or higher, the patient may qualify for future screening with alternating mammogram and breast MRI. Electronically signed and approved by: Ti Begum M.D. Radiologis
== END | disposition home or self-care (01) ==
LOC: RADMAMWWP 09:22
PROVIDERS: ATTEND Family Medicine
DX: Z12.31 Encounter for screening mammogram for malignant neoplasm of breast (principal); Z78.0 Asymptomatic menopausal state; Z80.3 Family history of malignant neoplasm of breast; Z85.3 Personal history of malignant neoplasm of breast; Z98.82 Breast implant status
CPT/HCPCS: 77067

== ENCOUNTER → 2023-10-16 | Outpatient (CLI) | payer MEDICARE ==
--- NOTE | 2023-10-16 09:23 | US ---
EXAMINATION TYPE: US carotid duplex BILAT DATE OF EXAM: 10/16/2023 COMPARISON: 09/04/23 US and CTA CLINICAL INDICATION: Female, 68 years old with history of I73.9 PERIPHERAL VASCULAR DISEASE, UNSPECIF IED; HX cardiovascular disease TECHNIQUE: Carotid duplex ultrasound examination. Indirect Doppler criteria was utilized. FINDINGS: EXAM MEASUREMENTS: RIGHT: Peak Systolic Velocity (PSV) cm/sec ----- Right CCA: 64.8 ----- Right ICA: 112.8 ----- Right ECA: 40.7 ICA/CCA ratio: 1.7 RIGHT: End Diastole cm/sec ----- Right CCA: 22.7 ----- Right ICA: 35.7 ----- Right ECA: 0.0 LEFT: Peak Systolic Velocity (PSV) cm/sec ----- Left CCA: 66.9 ----- Left ICA: 118.5 ----- Left ECA: 57.2 ICA/CCA ratio: 1.8 LEFT: End Diastole cm/sec ----- Left CCA: 24.8 ----- Left ICA: 40.9 ----- Left ECA: 15.4 VERTEBRALS (direction of flow): Right Vertebral: Antegrade Left Vertebral: Antegrade Rhythm: Normal SECONDARY EDUCATION PROFESSOR NOTES: Mild atherosclerotic plaque bilateral bulbs IMPRESSION: Less than 50% stenosis of the bilateral carotid bifurcations. Criteria for Assigning % of Stenosis / Diameter reduction (Estimation based on the indirect measurements of the internal carotid artery velocities (ICA PSV). 1. Normal (no stenosis)=ICA PSV < 125 cm/s: ratio < 2.0: ICA EDV<40 cm/s. 2. Less than 50% stenosis=ICA PSV < 125 cm/s: ratio < 2.0: ICA EDV<40 cm/s. 3. 50 to 69% stenosis=ICA PSV of 125 to 230 cm/s: ration 2.0 ? 4.0: ICA EDV 40-100 cm/s. 4. Greater than 70% stenosis to near occlusion= ICA PSV > 230 cm/s: ratio > 4.0: ICA EDV > 100 cm/s. 5. Near occlusion= ICA PSV velocities may be low or undetectable: variable ratio and ICA EDV. 6. Total occlusion=unable to detect flow.
--- NOTE | 2023-10-16 09:42 | US ---
EXAMINATION TYPE: US duplex aorta DATE OF EXAM: 10/16/2023 COMPARISON: NONE CLINICAL INDICATION: Female, 68 years old with history of I73.9 PERIPHERAL VASCULAR DISEASE, UNSPECIF IED; Hx cardiovascular disease TECHNIQUE: Multiple sonographic images of the abdominal aorta are obtained. FINDINGS: EXAM MEASUREMENTS: Abdominal Aorta: Proximal: 2.6x2.5 Mid: 1.9x2.0 Distal: 1.5x1.9 Bifurcation: Right Illiac: 1.0x1.4 Left Illiac: 0.8x1.3 CARRIAGE DOGGER NOTES: exam slightly limited by overlying bowel IMPRESSION: No evidence for abdominal aortic aneurysm.
== END | disposition home or self-care (01) ==
LOC: RADUSWWP 08:25
PROVIDERS: ATTEND Family Medicine
DX: I65.23 Occlusion and stenosis of bilateral carotid arteries (principal); I73.9 Peripheral vascular disease, unspecified; Z82.49 Family history of ischemic heart disease and other diseases of the circulatory system
CPT/HCPCS: 93880; 93979

== ENCOUNTER → 2023-12-17 | Outpatient (CLI) | payer MEDICARE ==
--- NOTE | 2023-12-17 15:49 | CTL ---
EXAMINATION TYPE: CT Low Dose Lung DATE OF EXAM ORDERED: 12/17/2023 HISTORY: . Lung cancer screening CT DLP: 75.[address] CTDI: 2.1 mGy Automated exposure control for dose reduction was used. SCREENING VISIT: Subsequent COMPARISON: 09/17/2022 TECHNIQUE: Low dose computed tomography scan was performed through the chest at 1 mm thick sections a nd reconstructed images in the coronal plane at [address] DIAGNOSTIC QUALITY: Satisfactory FINDINGS: LUNG NODULES: None. Previous right upper lobe nodule not identified currently. LUNGS: COPD: Severity: None Fibrosis: Severity: None Lymph nodes: None Other findings: Left breast prostheses present RIGHT PLEURAL SPACE: Effusion: None Calcification: None Thickening: None Pneumothorax: None LEFT PLEURAL SPACE: Effusion: None Calcification: None Thickening: None Pneumothorax: None HEART: Heart Size: Normal Coronary calcification: Mild Pericardial effusion: None OTHER FINDINGS: Upper abdomen: There is a hypodense enlargement of the left adrenal gland measuring 1.4 cm. This was present previously Bony thorax: Normal Supraclavicular region: Normal Other: Ascending thoracic aorta at the level the main pulmonary artery measures 3.3 cm. The main pul monary artery at the bifurcation measures 3.0 cm. Mild coronary artery calcification is present. IMPRESSION: 1. No suspicious changes to suggest primary or metastatic neoplasm. 2. Low density stable thickening of the left adrenal gland. FOLLOW UP CT CHEST RECOMMENDATION: Follow-up low-dose CT chest one year CT LUNG RAD: Lung-Rad 2 Benign Appearance or Behavior
== END | disposition home or self-care (01) ==
LOC: RADCTMAIN 13:57
PROVIDERS: ATTEND Family Medicine
DX: Z12.2 Encounter for screening for malignant neoplasm of respiratory organs (principal); Z87.891 Personal history of nicotine dependence; E27.8 Other specified disorders of adrenal gland
CPT/HCPCS: 71271

== ENCOUNTER 2024-04-24 19:10 | Inpatient (IN) | payer MEDICARE ==
[2024-04-24] MEDS: IOPAMIDOL-370 100ML BTL INJ ONE (19:53)
--- NOTE | 2024-05-22 08:59 | US ---
[id number] Patient Anitha Maier ID [id number] EXAMINATION TYPE: US lower ext pseudo artery RT DATE OF EXAM: 04/25/2024 COMPARISON: THIS EXAM WAS READ DURING PACS DOWNTIME, NO PRIORS AVAILABLE. CLINICAL INDICATION: Rt groin cath yesterday, bruising EXAM PERFORMED: Grayscale and color Doppler duplex imaging performed of the groin, post cardiac zeenat ter to assess for pseudoaneurysm. Color and Waveform Doppler performed to assess for the presence of pseudoaneurysm; Is there ultrasound evidence of a pseudoaneurysm: No Is there evidence of AV shunting: No Is there a fluid collection present: No IMPRESSION: No evidence for pseudoaneurysm or hematoma.
== END 2024-04-26 15:00 | disposition home or self-care (01) | DRG 281 ==
LOC: 2SICU 19:10
PROVIDERS: ADMIT Internal Medicine Geriatric Medicine; ATTEND Internal Medicine Geriatric Medicine
PROC: B2111ZZ Fluoroscopy of Multiple Coronary Arteries using Low Osmolar Contrast (ICD-10-PCS; 2024-04-24)
PROC: B2151ZZ Fluoroscopy of Left Heart using Low Osmolar Contrast (ICD-10-PCS; 2024-04-24)
PROC: 4A023N7 Measurement of Cardiac Sampling and Pressure, Left Heart, Percutaneous Approach (ICD-10-PCS; principal; 2024-04-24 19:30)
DX: I21.19 ST elevation (STEMI) myocardial infarction involving other coronary artery of inferior wall (principal); I42.9 Cardiomyopathy, unspecified; I51.81 Takotsubo syndrome; E11.51 Type 2 diabetes mellitus with diabetic peripheral angiopathy without gangrene; I10 Essential (primary) hypertension; I73.00 Raynaud's syndrome without gangrene; Z11.52 Encounter for screening for COVID-19; S30.1XXA Contusion of abdominal wall, initial encounter; E78.5 Hyperlipidemia, unspecified; Z89.612 Acquired absence of left leg above knee; I25.10 Atherosclerotic heart disease of native coronary artery without angina pectoris; Z79.899 Other long term (current) drug therapy; Z87.891 Personal history of nicotine dependence

== ENCOUNTER → 2024-07-05 | Outpatient (CLI) | payer MEDICARE ==
[2024-07-05 17:31] LABS: Blood Urea Nitrogen 15.9 mg/dL (9.0-27.0); Chloride 108 mmol/L (96-109); Chol/HDL Ratio 2.14 Ratio; Glucose 103 mg/dL (70-110); Sodium 145 mmol/L (135-145)
[2024-07-05 17:32] LABS: ALT 15 U/L (8-44); AST 19 U/L (13-35); Albumin 4.3 g/dL (3.8-4.9); Albumin/Globulin Ratio 1.65 Ratio (1.60-3.17); Alkaline Phosphatase 52 U/L (41-126); Calcium 9.7 mg/dL (8.7-10.3); Carbon Dioxide 25.3 mmol/L (21.6-31.8); Globulin 2.6 g/dL (1.6-3.3); Total Bilirubin 0.4 mg/dL (0.3-1.2); Total Protein 6.9 g/dL (6.2-8.2)
== END | disposition home or self-care (01) ==
LOC: LABWHC1 09:20
PROVIDERS: ATTEND Internal Medicine Interventional Cardiology
DX: E78.2 Mixed hyperlipidemia (principal)
CPT/HCPCS: 36415; 80053; 80061

== ENCOUNTER → 2024-07-07 | Outpatient (CLI) | payer MEDICARE ==
--- NOTE | 2024-07-07 14:25 | XR ---
EXAMINATION TYPE: XR ankle complete RT DATE OF EXAM: 07/07/2024 COMPARISON: NONE HISTORY: 69-year-old female M25.571, right ankle pain TECHNIQUE: 3 views FINDINGS: Mild circumferential soft tissue swelling. Ankle mortise is congruent with preservation of the distal tibiofibular overlap. Talar dome is intact. Small delineation to the Achilles tendon. Subtalar joint is aligned. No acute fracture, subluxation, dislocation seen. IMPRESSION: Mild soft tissue swelling. No acute osseous abnormality seen. [facility], , 07/07/2024 2:22 PM
== END | disposition home or self-care (01) ==
LOC: RADXRMAIN 12:24
PROVIDERS: ATTEND Family Medicine

== ENCOUNTER → 2024-11-07 | Outpatient (CLI) | payer MEDICARE ==
[2024-11-07 15:26] LABS: ALT 15 U/L (8-44); AST 16 U/L (13-35); Chol/HDL Ratio 2.53 Ratio; LDL Cholesterol,Calculated 56.2 mg/dL (0.0-131.0)
== END | disposition home or self-care (01) ==
LOC: LABWHC1 10:45
PROVIDERS: ATTEND Nurse Practitioner Adult Health
DX: E78.2 Mixed hyperlipidemia (principal)
CPT/HCPCS: 36415; 80061; 84450; 84460

== ENCOUNTER → 2024-12-27 | Outpatient (CLI) | payer MEDICARE ==
[2024-12-27 15:03] LABS: Basophils # (A) 0.04 X 10*3/uL (0.00-0.10); Basophils % (A) 0.7 %; Eosinophils # (A) 0.14 X 10*3/uL (0.04-0.35); Eosinophils % (A) 2.6 %; HCT 31.3 % (37.2-46.3); HGB 9.3 g/dL (12.0-15.0); Lymphocytes # (A) 1.61 X 10*3/uL (0.90-5.00); Lymphocytes % (A) 29.6 %; MCH 24.4 pg (27.0-32.0); MCHC 29.7 g/dL (32.0-37.0); MCV 82.2 FL (80.0-97.0); Mean Platelet Volume 9.5 FL (9.5-12.2); Monocytes # (A) 0.53 X 10*3/uL (0.20-1.00); Monocytes % (A) 9.7 %; NRBC Per 100 WBC 0 X 10*3/uL (0.00-0.01); Platelet Count 284 X 10*3/uL (140-440); RBC 3.81 X 10*6/uL (4.10-5.20); RDW 19.2 % (11.5-14.5); WBC 5.44 X 10*3/uL (4.50-10.00)
[2024-12-27 15:35] LABS: ALT 14 U/L (8-44); AST 17 U/L (13-35); Albumin/Globulin Ratio 1.25 Ratio (1.60-3.17); Alkaline Phosphatase 68 U/L (41-126); BUN/Creat Ratio 22.62 Ratio (12.00-20.00); Blood Urea Nitrogen 18.1 mg/dL (9.0-27.0); Calcium 9.3 mg/dL (8.7-10.3); Carbon Dioxide 22.9 mmol/L (21.6-31.8); Chloride 101 mmol/L (96-109); Chol/HDL Ratio 3.12 Ratio; Globulin 3.2 g/dL (1.6-3.3); Glucose 93 mg/dL (70-110); LDL Cholesterol,Calculated 74.5 mg/dL (0.0-131.0); Potassium 5.3 mmol/L (3.5-5.5); Sodium 140 mmol/L (135-145); T4, Free (Free Thyroxine) 0.98 ng/dL (0.80-1.80); Total Bilirubin <0.2 mg/dL (0.3-1.2); Total Protein 7.2 g/dL (6.2-8.2)
[2024-12-27 16:30] LABS: Erythrocyte Sedimentation Rate 57 mm/Hr (0-30)
== END | disposition home or self-care (01) ==
LOC: LABWHC1 08:19
PROVIDERS: ATTEND Family Medicine
DX: I73.9 Peripheral vascular disease, unspecified (principal); E11.65 Type 2 diabetes mellitus with hyperglycemia; M35.3 Polymyalgia rheumatica; Z79.620 Long term (current) use of immunosuppressive biologic
CPT/HCPCS: 36415; 80053; 80061; 83036; 83090; 83735; 84439; 84443; 85025; 85652; 86140

== ENCOUNTER → 2025-03-07 | Outpatient (CLI) | payer MEDICARE ==
[2025-03-07 15:05] LABS: HCT 33.2 % (37.2-46.3); HGB 9.8 g/dL (12.0-15.0); MCH 24.1 pg (27.0-32.0); MCHC 29.5 g/dL (32.0-37.0); MCV 81.6 FL (80.0-97.0); Mean Platelet Volume 9.8 FL (9.5-12.2); NRBC Per 100 WBC 0 X 10*3/uL (0.00-0.01); Platelet Count 293 X 10*3/uL (140-440); RBC 4.07 X 10*6/uL (4.10-5.20); RDW 18.8 % (11.5-14.5); WBC 8.48 X 10*3/uL (4.50-10.00)
[2025-03-07 15:06] LABS: Basophils # (A) 0.04 X 10*3/uL (0.00-0.10); Basophils % (A) 0.5 %; Eosinophils # (A) 0.08 X 10*3/uL (0.04-0.35); Eosinophils % (A) 0.9 %; Lymphocytes # (A) 2.53 X 10*3/uL (0.90-5.00); Lymphocytes % (A) 29.8 %; Monocytes # (A) 0.64 X 10*3/uL (0.20-1.00); Monocytes % (A) 7.5 %; Neutrophils # (A) 5.17 X 10*3/uL (1.80-7.70); Neutrophils % (A) 61.1 %
[2025-03-07 15:19] LABS: NT-Pro-B-Type Natriuretic Pept 215 pg/mL (0-125)
[2025-03-07 16:16] LABS: ALT 11 U/L (8-44); AST 16 U/L (13-35); Albumin/Globulin Ratio 1.08 Ratio (1.60-3.17); Alkaline Phosphatase 58 U/L (41-126); Blood Urea Nitrogen 10.8 mg/dL (9.0-27.0); Calcium 9.5 mg/dL (8.7-10.3); Carbon Dioxide 24.2 mmol/L (21.6-31.8); Chloride 103 mmol/L (96-109); Chol/HDL Ratio 2.52 Ratio; Globulin 3.7 g/dL (1.6-3.3); Glucose 117 mg/dL (70-110); LDL Cholesterol,Calculated 47.4 mg/dL (0.0-131.0); Potassium 4.6 mmol/L (3.5-5.5); Sodium 142 mmol/L (135-145); T4, Free (Free Thyroxine) 1.23 ng/dL (0.80-1.80); Total Bilirubin 0.3 mg/dL (0.3-1.2); Total Protein 7.7 g/dL (6.2-8.2)
== END | disposition home or self-care (01) ==
LOC: LABWHC1 11:54
PROVIDERS: ATTEND Family Medicine
DX: E11.621 Type 2 diabetes mellitus with foot ulcer (principal); I73.9 Peripheral vascular disease, unspecified; R60.9 Edema, unspecified
CPT/HCPCS: 36415; 80053; 80061; 83036; 83880; 84439; 84443; 85025

== ENCOUNTER → 2025-03-22 | Outpatient (CLI) | payer MEDICARE ==
--- NOTE | 2025-03-22 09:07 | MM ---
Reason for Exam: Screening (asymptomatic). Last mammogram was performed 1 year(s) and 8 month(s) ago. Patient History: Menarche at age 15. First Full-Term at age 27. Postmenopausal. Patient has history of breast feeding. Breast cancer, right, age 47. Previous chemotherapy at age 47. 2001, Reduction on the Left side. 2001, Mastectomy on the Right side. 2001, Implant on the right side. Maternal cousin had breast cancer, age 40. Sister had breast cancer, age 40. Prior Study Comparison: 05/22/2021 Left Screening Mammogram, [facility]. 06/02/2022 Left MG 3D scr dana unilateral w/cad., [facility]. 08/12/2023 Left MG 3D scr dana unilateral w/cad., [facility]. Tissue Density: Left: There are scattered areas of fibroglandular density. Findings: There are a few small scattered benign-appearing round calcifications in the left breast redemonstrated. There is no suspicious group of microcalcifications or new suspicious mass in the left breast. Overall Assessment: Benign, BI-RAD 2 Management: Screening Mammogram of the left breast in 1 year. . Patient should continue monthly self-breast exams. A clinical breast exam by your physician is recommended on an annual basis. This exam should not preclude additional follow-up of suspicious palpable abnormalities. Note on Mercedes scores and lifetime risk: 1. A Mercedes score greater than 3% is considered moderate risk. If this is the case, consider specialist referral to assess eligibility for a risk reducing agent. 2. If overall lifetime risk for the development of breast cancer is 20% or higher, the patient may qualify for future screening with alternating mammogram and breast MRI. [facility], , 03/22/2025 9:04 AM. Electronically signed and approved by: Sky Aggarwal M.D.
--- NOTE | 2025-03-22 10:06 | CTL ---
EXAMINATION TYPE: CT Low Dose Lung DATE OF EXAM ORDERED: 03/22/2025 COMPARISON: CT Low Dose Lung 12/17/2023, 09/17/2022 CLINICAL INDICATION: Female, 70 years old with history of Z12.2 LUNG CA SCR Z87.891 FORMER; [facility], form er smoker, 1 pack a day for 52 years, Lung cancer screening, History of Smoking/tobacco use. TECHNIQUE: Low dose computed tomography scan was performed through the chest at 1 mm thick sections a nd reconstructed images in multiple planes at 1 mm and [address] DLP: 73.[address] CTDI: 2.0 mGy Automated exposure control for dose reduction was used. CT DIAGNOSTIC QUALITY: Satisfactory FINDINGS: Nodules: Stable right upper lobe 2.8 mm pulmonary nodule (series 4, image 92). Punctate posterior left upper l obe calcified granuloma. LUNGS: COPD: Severity: Mild Fibrosis: Severity: None Lymph nodes: None Other findings: None RIGHT PLEURAL SPACE: Effusion: None Calcification: None Thickening: None Pneumothorax: None LEFT PLEURAL SPACE: Effusion: None Calcification: None Thickening: None Pneumothorax: None HEART: Heart Size: Normal Coronary Calcification: Small Pericardial Effusion: None OTHER FINDINGS: Upper abdomen: Small hiatal hernia. Left adrenal gland 2.1 cm low-density lesion consistent with a be nign lipid rich adenoma. Bony thorax: None Supraclavicular region: None Other: Postsurgical changes from right mastectomy with breast implant. IMPRESSION: 1. Stable couple pulmonary nodules measuring less than 3 mm. No new or enlarging pulmonary nodule. 2. Mild emphysematous changes. 3. Stable left adrenal gland lipid rich benign adenoma. CT LUNG RAD AND CT CHEST RECOMMENDATION: Lung-Rad 2 Benign Appearance or Behavior: Continue annual sc reening with LDCT in 12 months. S Modifier (other clinically significant findings): None [facility], , 03/22/2025 10:04 AM
--- NOTE | 2025-03-22 10:29 | BD ---
EXAMINATION TYPE: Axial Bone Density DATE OF EXAM: 03/22/2025 CLINICAL HISTORY: 70 years old Female. ICD-10 CODE: N95.9 MENOPAUSAL , Additional History: Height: 63.25 Weight: 134 FRAX RISK QUESTIONS: Family History (Parent hip fracture): no History of Fracture in Adulthood: no Secondary Osteoporosis: yes 3. Menopause before 45: yes Current Tobacco Use: yes RISK FACTORS HISTORY OF: Surgery to Spine/Hip(right/left)/Wrist (right/left): no MEDICATIONS: Thyroid Medications: no Osteoporosis Medications: no EXAM MEASUREMENTS: Bone mineral densitometry was performed using the Tabula System. Bone mineral density as measured about the1.024 T Score Values are as follows: ----- L1: -2.6 ----- L2: -1.6 ----- L3: -0.9 ----- L4: -0.6 ----- L1-L4: -1.3 Z Score Values are as follows: ----- L1: -0.6 ----- L2: 0.4 ----- L3: 1.1 ----- L4: 1.4 ----- L1-L4: 0.7 Bone mineral density has: Decreased -5.6% since study of: 06-02-2022 Bone mineral density about the R hip (g/cm2): 0.831 Bone mineral density about the L hip (g/cm2): 0.540 T Score values are as follows: -----R Neck: -1.7 -----L Neck: -3.5 -----R Total: -1.4 -----L Total: -3.7 Z Score values are as follows: -----R Neck: 0.2 -----L Neck: -1.6 -----R Total: 0.3 -----L Total: -2.0 Bone mineral density has: Decreased -25.4% since study of: 06-02-2022 FRAX%s: The graph provided illustrates a 27.9% chance for a major osteoporotic fx and a 16.9% chance for the hips probability for fx in 10 years time. Patient has a prothetic lt leg was in a great deal of pain during the procedure on her Rt leg due to circulation. She completed the test . IMPRESSION: Osteoporosis (T Score less than -2.5). There is increased fracture risk and therapy is usually indicated based on age. Re-Screen 1-2 years. NOTE: T-SCORE=SD OF THE YOUNG ADULT MEAN. [facility], , 03/22/2025 10:26 AM
== END | disposition home or self-care (01) ==
LOC: RADMAMWWP 07:42
PROVIDERS: ATTEND Family Medicine
DX: Z12.31 Encounter for screening mammogram for malignant neoplasm of breast (principal); Z12.2 Encounter for screening for malignant neoplasm of respiratory organs; N95.9 Unspecified menopausal and perimenopausal disorder; R92.322 Mammographic fibroglandular density, left breast; R92.1 Mammographic calcification found on diagnostic imaging of breast; M81.0 Age-related osteoporosis without current pathological fracture; R91.8 Other nonspecific abnormal finding of lung field; J43.9 Emphysema, unspecified; D35.02 Benign neoplasm of left adrenal gland; Z87.891 Personal history of nicotine dependence; Z78.0 Asymptomatic menopausal state; Z85.3 Personal history of malignant neoplasm of breast; Z98.82 Breast implant status; Z90.11 Acquired absence of right breast and nipple; Z80.3 Family history of malignant neoplasm of breast
CPT/HCPCS: 71271; 77067; 77080